=== PATIENT | female | born 1980 | race Caucasian/White ===

== ENCOUNTER 2019-03-02 10:14 | Outpatient (CLI) | payer BC, SELFPAY ==
[2019-03-02 12:15] LABS: Anion Gap 8.2 mmol/L (3-11); BUN 16 mg/dL (7-18); CO2 28.8 mmol/L (21.0-32.0); CREATININE 0.73 mg/dL (0.55-1.02); Calcium 9.3 mg/dL (8.5-10.1); Calculated LDL 127 mg/dL; Chloride 102 mmol/L (98-107); Cholesterol 215 mg/dL (50-200); Glucose 92 mg/dL (70-100); HDL Cholesterol 72 mg/dL (40-60); Potassium 4.4 mmol/L (3.5-5.1); Sodium 139 mmol/L (136-145); Triglyceride 81 mg/dL (30-150)
== END 2019-03-02 10:34 ==
DX: Z00.00 Encounter for general adult medical examination without abnormal findings (principal); Z13.228 Encounter for screening for other metabolic disorders; Z13.220 Encounter for screening for lipoid disorders
CPT/HCPCS: 36415; 80048; 80061

== ENCOUNTER 2019-06-14 00:50 | Outpatient (CLI) | payer BC, SELFPAY ==
--- NOTE | 2019-06-14 09:34 | DI.MAMMO_ITS ---
EXAM: MAMMO SCREENING CLINICAL HISTORY: screening, baseline TECHNIQUE: Mammograms were interpreted according to the usual protocol including computer analysis w [employer] CAD system, tomosynthesis and C-view imaging. FINDINGS: The breasts are of moderate density with fairly symmetrical distribution of fibroglandular tissue. N o dominant mass or clumped microcalcification is identified in either breast. Current examination is a baseline examination. IMPRESSION: No specific evidence of malignancy at this time. Routine screening examinations are suggested at year ly intervals in this age group according to the ACR guidelines. Category 1. Breast density, category B. BI-RADS Cat 1 - Negative. Breast Density - Category B - Scattered areas of fibroglandular density.
== END 2019-06-14 01:10 ==
PROVIDERS: Visit Provider Nurse Practitioner Women's Health
DX: Z12.31 Encounter for screening mammogram for malignant neoplasm of breast (principal)
CPT/HCPCS: 77063; 77067

== ENCOUNTER 2020-09-02 10:51 | Outpatient (REF) | payer BC, SELFPAY ==
--- NOTE | 2020-09-02 10:30 | PAPFT_PTH ---
PATIENT: Selma Osorio LOC: [facility] U#:[id number] AGE/SX: 40/F ROOM: RE09/02/[address]: Susan Lund NP : 1980 BED: DIS: 09/02/2020 SPEC #: [id number] RECD: 09/02/20 13:02 STATUS: ELIAN MANCUSO #: [id number] DEBBIE: 09/02/20 10:[address]: Susan Lund NP DEPT: [facility] Cytology RECD BY: Lynette Cartagena ENTERED: 09/02/20 13:02 SP TYPE: PAPFT OTHR DR: Donna Local Tissues: 1 - CX/ENDOCX FOR PAP SMEARS Procedures: PAP THIN PREP/[facility] Screening Comments: [id number] (CHLAMYDIA/GC)
[2020-09-04 15:09] LABS: Chlamydia Result Negative (Negative); GC Result Negative (Negative)
== END 2020-09-02 10:52 | disposition home or self-care (01) ==
LOC: LBN 10:51
PROVIDERS: Visit Provider Nurse Practitioner Women's Health
DX: Z12.4 Encounter for screening for malignant neoplasm of cervix (principal)
CPT/HCPCS: 87491; 87591; 88142

== ENCOUNTER 2020-09-11 02:17 | Outpatient (CLI) | payer BC, SELFPAY ==
--- NOTE | 2020-09-11 11:11 | DI.MAMMO_ITS ---
Exam(s) MAMMO SCREENING EXAM: MAMMO SCREENING CLINICAL HISTORY: screening TECHNIQUE: Mammograms were interpreted according to the usual protocol including computer analysis w [employer] CAD system, tomosynthesis and C-view imaging. COMPARISON: FINDINGS: The breasts of moderate density with fairly symmetrical distribution of fibroglandular tissue. No do minant mass clumped microcalcification is identified in either breast. The current examination is co mpared with previous examination of June 2019 and there is increased prominence of a focal area o f a symmetric density projected in the central superior portion of the left breast on MLO view only. Additional mammographic views of this area are requested to include an MLO spot compression view of the left breast. No other significant change seen. IMPRESSION: Additional mammographic views of the left breast requested as described above. Breast ultrasound may be indicated as well depending on the results of the additional mammographic views. BI-RADS Category 0 - Assessment Incomplete: Need additional imaging evaluation Breast Density - Category B - Scattered areas of fibroglandular density
== END 2020-09-11 02:37 ==
PROVIDERS: PCP Family Medicine; Visit Provider Nurse Practitioner Women's Health
DX: Z12.31 Encounter for screening mammogram for malignant neoplasm of breast (principal); R92.8 Other abnormal and inconclusive findings on diagnostic imaging of breast
CPT/HCPCS: 77063; 77067

== ENCOUNTER 2020-09-16 02:10 | Outpatient (CLI) | payer BC, SELFPAY ==
--- NOTE | 2020-09-16 | DI.MAMMO_ITS ---
Exam(s) MG MAMMO SCREEN CALL BACK UNI US BREAST LT LIMITED EXAM: MG MAMMO SCREEN CALL BACK UNI CLINICAL HISTORY: F/U MAMMO, INCREASED ASYMMETRIC DENSITY LT BREAST TECHNIQUE: Mammograms were interpreted according to the usual protocol including computer analysis w ith CAD system, tomosynthesis and C-view imaging. COMPARISON: FINDINGS: Additional mammographic views of the left breast and left breast ultrasound are interpreted in conjun ction. These examinations were obtained to evaluate questionable area of asymmetric density in the u pper outer quadrant of the left breast seen on MLO view of recent mammogram. Additional mammographic views fail to show a discrete mass. Breast ultrasound shows no evidence of a mass or cyst. IMPRESSION: No specific evidence of malignancy at this time. Follow-up unilateral left breast mammogram recommen ded in 6 months. BI-RADS Category 3 - 6 month - Probably Benign Finding: Recommend follow-up mammography in 6 months Breast Density - Category B - Scattered areas of fibroglandular density
== END 2020-09-16 02:30 ==
PROVIDERS: PCP Family Medicine; Visit Provider Nurse Practitioner Women's Health
DX: Z12.31 Encounter for screening mammogram for malignant neoplasm of breast (principal); R92.8 Other abnormal and inconclusive findings on diagnostic imaging of breast; N64.59 Other signs and symptoms in breast
CPT/HCPCS: 76642; 77063; 77067

== ENCOUNTER → 2021-11-02 02:22 | Outpatient (CLI) | payer BC, SELFPAY ==
--- NOTE | 2021-11-02 08:00 | DI.MAMMO_ITS ---
Exam(s) MAMMO SCREENING EXAM: MAMMO SCREENING CLINICAL HISTORY: screening,Z12.39. TECHNIQUE: Bilateral full field digital CC and MLO mammographic images were obtained with 3D tomosyn thesis and utilizing computer aided detection (CAD). COMPARISON: Prior mammograms were reviewed, the most recent being September 2020 breast ultrasound September was also reviewed. FINDINGS: There are no new significant radiograph findings in the right breast. In the left breast there have asymmetric density is again noted, slightly more prominent than previou s. No malignant-appearing microcalcification groups in this region or elsewhere in either breast There is no significant architectural distortion nor skin thickening-retraction. IMPRESSION: 1. No radiographic evidence of malignancy in the right breast. 2. Asymmetric density in left breast. Recommend spot compression view and complete left breast ultra sound.. BI-RADS Category 0 - Assessment Incomplete: Need additional imaging evaluation Breast Density - Category B - Scattered areas of fibroglandular density Breast density Category C or D implies that the patient has dense breast tissue. Dense breast tissue can make it harder to find cancer on a mammogram. Dense breast tissue is also associated with an incr eased risk of breast cancer. This information about the result of the mammogram report was provided to the patient to raise their awareness. Use this report when you speak with the patient about their risks for breast cancer, which includes their family history. At that time, you may recommend additional screening tests (Ultrasoun d or MRI) as these tests may add significant information. A negative radiographic report should not delay biopsy if a dominant or clinically suspicious mass is present. Up to ten percent of cancers are not identified on mammography. A negative report may reinforce clinical impression. Adenosis and dense breasts may obscure an underlying neoplasm. False positive reports average 6 to 10%. Patient will receive a letter notifying them of these results.
== END ==
PROVIDERS: PCP Family Medicine; Visit Provider Nurse Practitioner Women's Health
DX: Z12.31 Encounter for screening mammogram for malignant neoplasm of breast (principal); R92.8 Other abnormal and inconclusive findings on diagnostic imaging of breast
CPT/HCPCS: 77063; 77067

== ENCOUNTER → 2021-11-10 01:14 | Outpatient (CLI) | payer BC, SELFPAY ==
--- NOTE | 2021-11-10 | DI.US_ITS ---
Exam(s) MG MAMMO SCREEN CALL BACK UNI US BREAST LT COMPLETE EXAM: MG MAMMO SCREEN CALL BACK UNI -LEFT AND COMPLETE LEFT BREAST ULTRASOUND CLINICAL HISTORY: F/U MAMMO, ASYMMETRIC DENSITY LT BREAST. TECHNIQUE: Unilateral spot mammographic images obtained with 3D tomosynthesisand utilizing computer aided detection (CAD). . Complete LEFT breast Ultrasound was also performed, including all 4 quadrants, the retroareolar regio n, and the ipsilateral axilla. COMPARISON: Prior mammograms were reviewed. This additional imaging was performed due to findings described on the recent screening mammogram of 11/02/2021. FINDINGS: DIAGNOSTIC LEFT BREAST MAMMOGRAM: Additional CC AND MLO SPOT 3D VIEWS mammographic views performed todayrenders this area less concerni ng and similar appearance to prior mammograms. COMPLETE LEFT BREAST ULTRASOUND: Ultrasound performed today reveals no evidence of solid or significant cystic lesions in all 4 quadra nts. Retroareolar region also unremarkable. Scanning of the left axilla is negative for adenopathy. IMPRESSION: No radiographic evidence of malignancy. Also negative complete left breast ultrasound Appropriate follow-up is repeat left breast MAMMOGRAM in 6 months. The patient was informed of these findings and recommendations prior to leaving the department today. BI-RADS Category 3 - 6 month - Probably Benign Finding: Recommend follow-up mammography in 6 months Breast Density - Category B - Scattered areas of fibroglandular density Breast density Category C or D implies that the patient has dense breast tissue. Dense breast tissue can make it harder to find cancer on a mammogram. Dense breast tissue is also associated with an incr eased risk of breast cancer. This information about the result of the mammogram report was provided to the patient to raise their awareness. Use this report when you speak with the patient about their risks for breast cancer, which includes their family history. At that time, you may recommend additional screening tests (Ultrasoun d or MRI) as these tests may add significant information. A negative radiographic report should not delay biopsy if a dominant or clinically suspicious mass is present. Up to ten percent of cancers are not identified on mammography. A negative report may reinforce clinical impression. Adenosis and dense breasts may obscure an underlying neoplasm. False positive reports average 6 to 10%. Patient will receive a letter notifying them of these results.
== END ==
PROVIDERS: PCP Family Medicine; Visit Provider Nurse Practitioner Women's Health
DX: Z12.31 Encounter for screening mammogram for malignant neoplasm of breast (principal); R92.8 Other abnormal and inconclusive findings on diagnostic imaging of breast; N64.59 Other signs and symptoms in breast
CPT/HCPCS: 76642; 77063; 77067

== ENCOUNTER 2022-03-01 17:28 | Emergency (ER) | payer BC, SELFPAY ==
[2022-03-01 17:33] VITALS: BP 139/83; PULSE 68; RESP 18; TEMP 36.4; O2SAT 97
[2022-03-01 18:15] LABS: Bilirubin Negative (Negative); Blood Small (Negative); Clarity Clear (Clear); Glucose Negative (Negative); Ketones Negative (Negative); Leukocyte Esterase Trace (Negative); Nitrite Negative (Negative); Urobilinogen 0.2 EU/dL (Up TO 0.2)
--- NOTE | 2022-03-01 18:15 | DI.CT_ITS ---
Exam(s) CT RENAL COLIC WO EXAM: CT RENAL COLIC WO CLINICAL HISTORY: L flank pain. TECHNIQUE: Imaging Protocol: Axial computed tomography images with coronal and sagittal reformatted images were created and reviewed CONTRAST MATERIAL: Intravenous: none Oral: None COMPARISON: CT ABD PELVIS WITH CONTRAST from 09/19/2009 FINDINGS: VISUALIZED LUNG BASES: No nodules nor pleural effusions evident. ABDOMEN: There is no ascites. LIVER: There are no obvious focal hepatic lesions evident of this noninfused study. GALLBLADDER/BILIARY: Gallbladder is contracted and difficult to evaluate. No obvious gallbladder wal l edema nor pericholecystic fluid. CBD is not dilated. PANCREAS: No evidence of pancreatic mass nor dilatation of the pancreatic duct. SPLEEN: Spleen is not enlarged. No obvious intrasplenic lesions. ADRENALS: There are no significant adrenal masses. KIDNEYS:No cysts evident. No solid renal masses. No calculi nor hydronephrosis. . ABDOMINAL AORTA: Abdominal aorta is not enlarged. LYMPH NODES: There is no retroperitoneal nor paraaortic adenopathy. ABDOMINAL WALL: No evidence of significant anterior abdominal wall nor inguinal hernia. GI: There are few slightly prominent small bowel loops in the left side of the pelvis exhibiting diam eters of 3 cm. Small bowel loops distal to this appear collapsed. Part of the colon is collapsed. Ellen endix appears unremarkable. PELVIS: LYMPH NODES: There is no intrapelvic nor inguinal adenopathy. GI: No evidence of appendicitis.No evidence of sigmoid diverticulitis. URINARY BLADDER: No calculi nor obvious masses evident REPRODUCTIVE: IUD is in satisfactory position in the endometrial canal of the uterus. Uterus is antev erted. No abnormal adnexal masses. There is a cyst in the left ovary which measures 1.9x cyst in the left ovary is most probably follicular. 1.5 cm.. No right adnexal findings. No free fluid. OSSEOUS: No significant osseous lesions. Multilevel chronic disc space narrowing. No listhesis. IMPRESSION: 1. Main finding here is a few dilated small bowel loops in left side of the abdomen-pelvis, not appea ring significantly edematous at this time and not associated with ascites. However, may represent ear ly developing small-bowel obstruction, particularly since bowel loops distal to this appear collapsed . Close follow-up recommended. 2. IUD in satisfactory position in the endometrial canal. 1.5 x 1.9 cm left ovarian cyst, probably fo llicular. 3. No evidence of appendicitis. RADIATION DOSE DELIVERED: 954.98mGy.cm Total DLP DATA REPOSITORY: All CT scans at this facility are submitted to the National Radiology Data Registry (NRDR) Dose Index Registry (DIR) with the [employer] (ACR). RADIATION OPTIMIZATION: All CT scans at this facility use at least one of these dose optimization te chniques: automated exposure control; mA and/or kV adjustment per patient size (includes targeted exa ms where dose is matched to clinical indication); or iterative reconstruction.
--- NOTE | 2022-03-01 18:15 | ED.GENADUL_ITS ---
Discharge Plan Disposition Patient Disposition: HOME Condition: Improving Discharge Details Clinical Impression: Left flank pain Primary Care Provider: Malena Mahmood ED Provider: Riley Romo Home Meds and New Rx's Prescriptions: Continued albuterol sulfate [Proventil HFA] 90 mcg/actuation HFA aerosol inhaler 2 puff inhalation Q6H PRN (Reason: shortness of breath or wheezing) Qty: 8.5 0RF Mirena 20 mcg/24 hours (5 yrs) 52 mg intrauterine device 1 device IY ONCE ibuprofen 600 MG tablet 600 mg PO QID PRN (Reason: Pain) Qty: 15 0RF Discharge Instructions Instructions: Flank Pain (ED) Additional Instructions: Home to rest this evening. Tylenol and ibuprofen as needed for discomfort. You may use the provided oxycodone for severe or breakthrough pain. May use oxycodone tonight at bedtime. No alcohol or driving while taking oxycodone. Return to the ER if you develop a fever, increasing pain, bloating, or any other acute concerns Medical Decision Making This is a 41-year-old female who presents from home. She has had stuttering left flank pain for approximately 1 week's time, worsened last night. She did not have a fever. She has been nauseated but no vomiting. Vital signs are unremarkable. Differential diagnosis is broad including renal colic, UTI, bowel pathology or SI joint dysfunction. Patient IV access established, screening labs and urinalysis obtained. She is referred for laboratory testing and CT images. The patient's labs noted normal CBC, chemistries with slight hyponatremia of 133 but otherwise unremarkable. Urinalysis with small blood and trace leuk esterase, micro urinalysis with mixed cells and culture pending. CT shows mildly dilated left lower quadrant small bowel loops. Small left ovarian cyst. No evidence of obstructive uropathy. Following fluids and medications, the patient is improving. Discussed that there is no clear etiology for her pain. Offered small number analgesics for home. She will return if she also fever, increasing pain, or any other acute concerns. HPI General Mode of arrival: ambulatory . Date/Time Provider Initiated Documentation: 03/01/22 17:38 . Limitations to Documentation: no limitations . Information obtained by: patient . History of Present Illness 41 year old F presents to the emergency department with the chief complaint of Left flank pain for 1 week, described as moderate, Quality is described as dull, and is localized to the back and left. Patient abdomen. Patient started experiencing this day(s) and it has been intermittent. No relieving factors improve symptom(s), No exacerbating factors reported . Patient notes denies fever/chills. Patient did receive the following treatments prior to arrival, none Related Data Home Medications Medication Instructions Recorded Confirmed ibuprofen 600 mg tablet 600 mg PO QID PRN Pain #15 tabs 11/10/16 03/01/22 levonorgestrel 20 mcg/24 hours (7 1 device intrauterine ONCE 05/14/19 03/01/22 yrs) 52 mg intrauterine device (Mirena) albuterol sulfate 90 mcg/actuation 2 puff inhalation Q6H PRN 12/18/21 03/01/22 aerosol inhaler (Proventil HFA) shortness of breath or wheezing #8.5 grams Previous Rx's Medication Instructions Recorded ibuprofen 600 mg tablet 600 mg PO QID PRN Pain #15 tabs 11/10/16 albuterol sulfate 90 mcg/actuation 2 puff inhalation Q6H PRN 12/18/21 aerosol inhaler (Proventil HFA) shortness of breath or wheezing #8.5 grams Allergies Allergy/AdvReac Type Severity Reaction Status Date / Time No Known Allergies Allergy Verified 03/01/22 17:35 General Stated Complaint: FlankPain SALVADOR: 3 Review of Systems Narrative: Pain comes in waves, radiates to her abdomen. No fever or vomiting. Endorses nausea. No recent menstrual periods. 8 systems were reviewed and otherwise negative. PFSH All Active Problems (Updated 03/01/22 @ 20:35 by Riley Romo MD) Left flank pain (Acute) IUD surveillance (Acute) GERD (gastroesophageal reflux disease) (Chronic) Chronic low back pain (Chronic) Surgical History hip surgery right Family History Mother Personal history of malignant neoplasm skin Father Hyperlipidemia Brother Hyperlipidemia Grandfather Personal history of malignant neoplasm Liver Grandfather Heart disease Grandmother Personal history of malignant neoplasm Lung Grandmother Diabetes Stroke Social History Smoking/Tobacco Use Status: Current every day Tobacco Type: cigarettes Smoking risk assessment performed?: Yes Alcohol Intake: current Alcohol Intake frequency: holidays/special occasions only Drug use: Never Substance use type: does not use Do you feel safe at home: Yes Do you feel safe in your relationship?: Yes Female Reproductive History Menstrual control method: progestin IUCD History History 2 Para 2 Hx # Term Pregnancies Multiple births Hx # Pregnancies Ectopic pregnancies AB induced Hx Number of Living Children AB spontaneous Exam Narrative Exam Narrative: GEN: awake, alert, oriented 3. Pleasant, well groomed, interactive. HEAD: Normocephalic, atraumatic ENT: Mucous membranes moist, oropharynx unremarkable, External ear exam unremarkable EYES: PERRL, EOMI NECK: Full ROM, no KARINA, no menigismus CHEST/RESP: Nontender, clear to auscultation bilateral, no wheeze/rhonchi/rales CARDIOVASCULAR: RRR, no murmur, rub leeroy. 2+ Rad pulse bilateral ABDOMEN: Soft, nontender, no mass. +Bowel sounds. The left flank is tender to percussion. No midline tenderness, step-off or deformity of the spine. EXT: Full ROM, no edema, no rash Neuro: Grossly normal neurologic exam, conversant, interactive. Psych: Speech fluent, thoughts congruent, affect normal Course Vital Signs Vital signs: Vital Signs Temperature 36.4 C L 03/01/22 17:33 Pulse 68 03/01/22 17:33 Respiratory Rate 18 03/01/22 17:33 Blood Pressure 139/83 03/01/22 17:33 Pulse Oximetry 97 03/01/22 17:33 Temperature 36.4 C L 03/01/22 17:33 Temperature Source Tympanic 03/01/22 17:33 Pulse 68 03/01/22 17:33 Respiratory Rate 18 03/01/22 17:33 Respiratory Effort Non-Labored 03/01/22 17:37 Blood Pressure 139/83 03/01/22 17:33 Blood Pressure Position Sitting 03/01/22 17:33 Pulse Oximetry 97 03/01/22 17:33 Oxygen Delivery Method Room Air 03/01/22 17:33 Oxygen Flow Rate 0 03/01/22 17:33 Pain Level 8 03/01/22 17:37
[2022-03-01 18:29] LABS: Bacteria Few HPF (Negative); C & S Indicated? Yes; Casts Negative LPF (Negative); Crystals Negative HPF (Negative); Epithelial Cells Rare HPF (Negative); Mucus Negative (Negative)
[2022-03-01 18:40] LABS: Abs Immature Grans 0.02 10^3/uL (0.0-0.06); Absolute Basophil Count 0.06 10^3/uL (0.0-0.2); Absolute Eosinophil Count 0.29 10^3/uL (0.0-0.7); Absolute Lymphocyte Count 3.12 10^3/uL (1.2-3.4); Absolute Monocyte Count 0.91 10^3/uL (0.1-0.8); Absolute Neutrophil Count 4.62 10^3/uL (1.2-6.7); Basophils % 0.7; Eosinophils % 3.2; HCT 38.7 % (36.0-46.0); Immature Grans % 0.2; Lymphocytes % 34.6; MCHC 33.6 % (32.0-36.0); MCV 89 fL (80-95); MPV 8.2 fL (8.0-11.0); Monocytes % 10.1; Neutrophils % 51.2; Platelet Count 323 10^3/uL (130-400); RBC 4.34 10^6/uL (3.93-5.22); RDW 11.9 % (11.7-14.6); RDW-SD 38.6 fL; WBC 9.02 10^3/uL (4.4-10.8)
[2022-03-01] MEDS: Ketorolac 30 MG/ML VIAL IVP (18:40)
[2022-03-01] MEDS: Normal Saline 1,000 ML 1000 ML IV (18:40)
[2022-03-01 18:51] LABS: ALT 25 U/L (14-59); AST 14 U/L (15-37); Alkaline Phosphatase 75 U/L (46-116); BUN 16 mg/dL (7-18); Bilirubin, Total 0.4 mg/dL (0.2-1.0); CREATININE 0.8 mg/dL (0.55-1.02); Calcium 9.1 mg/dL (8.5-10.1); Chloride 102 mmol/L (98-107); Glucose 96 mg/dL (74-106); Potassium 3.7 mmol/L (3.5-5.1); Sodium 133 mmol/L (136-145); Total Protein 7.8 g/dL (6.4-8.2)
--- NOTE | 2022-03-01 19:15 | DI.VRAD_ITS ---
PROCEDURE INFORMATION: Exam: CT Abdomen And Pelvis Without Contrast Exam date and time: 03/01/2022 6:51 PM Age: 41 years old Clinical indication: Abdominal pain; Flank; Left; Additional info: Left flank pain TECHNIQUE: Imaging protocol: Computed tomography of the abdomen and pelvis without contrast. Radiation optimization: All CT scans at this facility use at least one of these dose optimization techniques: automated exposure control; mA and/or kV adjustment per patient size (includes targeted exams where dose is matched to clinical indication); or iterative reconstruction. COMPARISON: OB US 2-3 TRIMESTER TRANSABD*P 12/01/2015 4:19 PM FINDINGS: Liver: Normal. No mass. Gallbladder and bile ducts: No calcified stones. No ductal dilation. Pancreas: Normal. No ductal dilation. Spleen: Normal. No splenomegaly. Adrenal glands: Normal. No mass. Kidneys and ureters: Normal. No hydronephrosis. Stomach and bowel: Mild small bowel thickening and mild bowel dilatation in the left lower quadrant Appendix: No evidence of appendicitis. Intraperitoneal space: Unremarkable. No free air. No significant fluid collection. Vasculature: Unremarkable. No abdominal aortic aneurysm. Lymph nodes: Unremarkable. No enlarged lymph nodes. Urinary bladder: Unremarkable as visualized. Reproductive: 15 mm left ovarian cyst. Intrauterine device in the uterus Bones/joints: No acute fracture. Degenerative changes in the spine Soft tissues: Small fat containing periumbilical hernia IMPRESSION: Mildly dilated left-sided lower quadrant small bowel loops in the left lower quadrant. Findings may represent mild ileus versus developing partial small bowel obstruction Small left ovarian cyst No CT evidence for obstructive uropathy Dictated and Authenticated by: Owen Dai MD. Ordering:JUWAN Lin MD
[2022-03-01 20:44] VITALS: BP 128/81; PULSE 52; RESP 18; TEMP 36.6; O2SAT 99
== END 2022-03-01 20:45 | disposition home or self-care (01) ==
PROVIDERS: Emergency Provider Emergency Medicine; PCP Family Medicine
DX: R10.9 Unspecified abdominal pain (principal)
CPT/HCPCS: 80053; 81025; 96361; 96374; 99284; 74176; 81003; 81015; 85025; 87086; 99283; J1885

== ENCOUNTER 2022-03-02 03:58 | Emergency (ER) | payer BC, SELFPAY ==
[2022-03-02 04:02] VITALS: BP 134/85; PULSE 69; RESP 16; TEMP 35.4; O2SAT 100
[2022-03-02 04:14] LABS: Bilirubin Negative (Negative); Blood Small (Negative); Clarity Clear (Clear); Glucose Negative (Negative); Ketones Negative (Negative); Leukocyte Esterase Negative (Negative); Nitrite Negative (Negative); Specific Gravity >= 1.030 (1.005-1.025); Urobilinogen 0.2 EU/dL (Up TO 0.2)
--- NOTE | 2022-03-02 04:20 | ED.GENADUL_ITS ---
Discharge Plan Disposition Patient Disposition: HOME Condition: Stable Discharge Details Clinical Impression: Back pain Primary Care Provider: Malena Mahmood ED Provider: Gregory Lund Home Meds and New Rx's Prescriptions: Continued albuterol sulfate [Proventil HFA] 90 mcg/actuation HFA aerosol inhaler 2 puff inhalation Q6H PRN (Reason: shortness of breath or wheezing) Qty: 8.5 0RF Mirena 20 mcg/24 hours (5 yrs) 52 mg intrauterine device 1 device IY ONCE ibuprofen 600 MG tablet 600 mg PO QID PRN (Reason: Pain) Qty: 15 0RF Discharge Instructions Instructions: Back Pain (ED) Medical Decision Making 41 yo female comes in with several days of intermittent left lower back pain. She states it started without falls or trauma, can't think of anything that made it start. She was seen in the ED last night for the pain and had labs which showed no significant findings and a ct which showed no kidney stone, nonspecific fluid filled bowel loops and small ovarian cyst. She was discharged and woke up with the same pain so came back for reevaluation. She denies fevers, chills, ivdu, abdominal pain, n/v. She localizes the pain to the left lower lateral lumbar back. No midline pain, no saddle anesthesia, normal distal sensation and pulses, no erythema or warmth. She has no abdominal tenderness at all so doubt evolving sbo. She has no findings on history or exam to suggest spinal epidural abscess or cauda equina. Suspect musculoskeletal back pain, will treat with toradol and valium and reassess. pt with no significant relief of pain with toradol and valium. No changes in exam, still no saddle anesthia or abdominal pain,ambulating without difficulty and pacing around room. Offered to give IM morphine for pain relief, discussed potential causes for her pain such as worsening of what she states chronic daily back pain vs disc herniation, patient then started to get agitated and yelled at me about how she's been in the and hurt her back before and has had kids and that she has a high pain tolerance. I tried to discuss with her that disc herniations or lumbar strains and other various non life threatening causes of back pain can be painful, but she would continually start yelling over what I was saying about how I wasn't treating her pain. Again tried to offer her IM morphine and again said I wasn't doing anything for her pain despite offering to order her this. I did offer to her multiple times im pain meds and though unlikely to find anything emergent keep her here for further studies such as mri but then she started to yell just sign me out I want to go home if you are not going to do anything for me. I tried multiple times to discuss with the patient potential causes of her pain and she would talk over me or yell. I then again offered for the last time to give her im morphine while she was yelling at me that I wasn't helping her and she requested d/c. Given her exam and history do not feel she is likely to have emergent pathology on an mri such as cauda equina so do not feel she needs to sign out ama. I recommended she follow up with her primary care gildardo and return precautions given Differential Diagnosis Differential Diagnosis: musculoskeletal back pain, muscle spasm Medical Records Medical records reviewed: Yes I reviewed the patient's medical records. HPI General Mode of arrival: ambulatory . Date/Time Provider Initiated Documentation: 03/02/22 04:00 . Limitations to Documentation: no limitations . Information obtained by: patient . History of Present Illness 41 year old F presents to the emergency department with the chief complaint of lower back pain, described as severe, Quality is described as sharp, and is localized to the back. Patient reports no radiation. Patient started experiencing this day(s) (4) and it has been intermittent. No relieving factors improve symptom(s), No exacerbating factors reported . Patient notes denies fever/chills and nausea/vomiting. Patient did receive the following treatments prior to arrival, none Related Data Home Medications Medication Instructions Recorded Confirmed ibuprofen 600 mg tablet 600 mg PO QID PRN Pain #15 tabs 11/10/16 03/02/22 levonorgestrel 20 mcg/24 hours (7 1 device intrauterine ONCE 05/14/19 03/02/22 yrs) 52 mg intrauterine device (Mirena) albuterol sulfate 90 mcg/actuation 2 puff inhalation Q6H PRN 12/18/21 03/02/22 aerosol inhaler (Proventil HFA) shortness of breath or wheezing #8.5 grams Previous Rx's Medication Instructions Recorded ibuprofen 600 mg tablet 600 mg PO QID PRN Pain #15 tabs 11/10/16 albuterol sulfate 90 mcg/actuation 2 puff inhalation Q6H PRN 12/18/21 aerosol inhaler (Proventil HFA) shortness of breath or wheezing #8.5 grams Allergies Allergy/AdvReac Type Severity Reaction Status Date / Time No Known Allergies Allergy Verified 03/02/22 04:09 General Stated Complaint: FlankPain SALVADOR: 3 Review of Systems All systems reviewed & are unremarkable except as noted in HPI and below Constitutional Constitutional: Denies chills, Denies fever(s) and Denies weakness Cardiovascular Cardiovascular: Denies chest pain and Denies dyspnea Respiratory Respiratory: Denies cough and Denies dyspnea Gastrointestinal Gastrointestinal: Denies abdominal pain, Denies nausea and Denies vomiting Genitourinary Genitourinary: Denies dysuria Integumentary/Breasts Skin/Breast: Denies rash Neurologic Neurologic: Denies weakness PFSH All Active Problems (Updated 03/02/22 @ 05:30 by Gregory Lund MD) Left flank pain (Acute) Back pain (Acute) IUD surveillance (Acute) GERD (gastroesophageal reflux disease) (Chronic) Chronic low back pain (Chronic) Surgical History hip surgery right Family History Mother Personal history of malignant neoplasm skin Father Hyperlipidemia Brother Hyperlipidemia Grandfather Personal history of malignant neoplasm Liver Grandfather Heart disease Grandmother Personal history of malignant neoplasm Lung Grandmother Diabetes Stroke Social History Smoking/Tobacco Use Status: Current every day Tobacco Type: cigarettes Smoking risk assessment performed?: Yes Alcohol Intake: current Alcohol Intake frequency: holidays/special occasions only Drug use: Never Substance use type: does not use Do you feel safe at home: Yes Do you feel safe in your relationship?: Yes Female Reproductive History Menstrual control method: progestin IUCD History History 2 Para 2 Hx # Term Pregnancies Multiple births Hx # Pregnancies Ectopic pregnancies AB induced Hx Number of Living Children AB spontaneous Exam Const Orientation: alert HENMT Head: normal to inspection Ears: external ears normal General nose exam: external nose normal Mouth: moist mucous membranes Eyes General: appearance normal, both eyes and all related structures Neck Neck: normal visual inspection Resp Effort & Inspection: normal respiratory effort and able to speak in complete sentences Cardio Rate: regular rate GI Palpation: soft and nontender Back/Spine/Pelvis Back: no CVA tenderness Skin General skin exam: no rashes or lesions noted Neuro General: patient alert and patient oriented x3 Extrem General: normal to inspection Psych Mental Status: mental status grossly normal Course Vital Signs Vital signs: Vital Signs Temperature 35.4 C L 03/02/22 04:02 Pulse 69 03/02/22 04:02 Respiratory Rate 16 03/02/22 04:02 Blood Pressure 134/85 03/02/22 04:02 Pulse Oximetry 100 03/02/22 04:02 Temperature 35.4 C L 03/02/22 04:02 Temperature Source Tympanic 03/02/22 04:02 Pulse 69 03/02/22 04:02 Respiratory Rate 16 03/02/22 04:02 Respiratory Effort 03/02/22 04:02 Blood Pressure 134/85 03/02/22 04:02 Blood Pressure Position Standing 03/02/22 04:02 Pulse Oximetry 100 03/02/22 04:02 Oxygen Delivery Method Room Air 03/02/22 04:02 Oxygen Flow Rate 0 03/02/22 04:02 Pain Level 10 03/02/22 04:09 Lab/Test Results Lab/Test Results: POC- Test(urine) Negative
[2022-03-02] MEDS: Ketorolac 30 MG/ML VIAL IM (04:29)
[2022-03-02] MEDS: diazePAM 10 MG/2 ML SYR IM (04:30)
[2022-03-02 04:36] LABS: Bacteria Rare HPF (Negative); C & S Indicated? No; Crystals Negative HPF (Negative); Epithelial Cells Moderate HPF (Negative); Mucus Negative (Negative); WBC 0-2 HPF (0-5)
== END 2022-03-02 05:39 | disposition home or self-care (01) ==
PROVIDERS: Emergency Provider Emergency Medicine; PCP Family Medicine
DX: M54.50 Low back pain, unspecified (principal)
CPT/HCPCS: 81025; 96372; 99284; 81003; 81015; J1885; J3360

== ENCOUNTER 2022-09-30 09:28 | Emergency (ER) | payer BC, SELFPAY ==
[2022-09-30 09:25] VITALS: BP 129/59; PULSE 58; RESP 18; TEMP 36.6; O2SAT 99
--- NOTE | 2022-09-30 10:10 | W.ED.GENAD ---
Discharge Plan Discharge Details Chief Complaint: Fall/Non TraumaCriteria Primary Care Provider: Malena Mahmood ED Provider: Perry Pinto Home Meds and New Rx's Prescriptions: No Action albuterol sulfate [Proventil HFA] 90 mcg/actuation HFA aerosol inhaler 2 puff inhalation Q6H PRN (Reason: shortness of breath or wheezing) Qty: 8.5 0RF Mirena 20 mcg/24 hours (5 yrs) 52 mg intrauterine device 1 device IY ONCE ibuprofen 600 MG tablet 600 mg PO QID PRN (Reason: Pain) Qty: 15 0RF escitalopram oxalate 10 mg tablet 10 mg PO DAILY Patient Comments: TAKE 1/2 TABLET BY MOUTH EVERY MORNING Medical Decision Making 1015 -- 42-year-old female presents with severe right posterior upper lower extremity pain after fall with hyperflexion at the hip and extension at the knee. Tender over her hamstring. Suspect acute hamstring tear. Consider fracture will obtain x-ray of the femur. I have requested orthopedic consultation. Toradol 30 mg IV to be administered for pain. -- X-ray of the femur interpreted by radiology as negative. -- Patient seen by orthopedics who recommends MRI. Unfortunately MRI not available today. Patient was given Dilaudid 1 mg IV for pain. She was reassessed and unfortunately was unable to ambulate secondary to pain. I spoke again with Dr. Cedeño who suggested potentially obtaining CT image. This was discussed with Dr. Haque radiology who feels CT imaging would not be helpful and recommends waiting for MRI tomorrow. Patient unable to ambulate secondary to pain. No inpatient beds available at [facility] for observation. Considered transfer and supervisor wire [employer] called multiple regional facilities and all at capacity unable accept the patient in transfer. Plan to board here in the emergency department until MRI and able to ambulate. MRI will not be available tonight. HPI General Mode of arrival: EMS. Date/Time Provider Initiated Documentation: 09/30/22 09:38. Limitations to Documentation: no limitations. Information obtained by: patient. HPI Narrative: 42-year-old female presents with chief complaint of severe right posterior upper leg pain. Patient slipped in chicken coop and hyperflexed her right leg at hip and extended knee and felt a popping sensation in her hamstring. She has had pain since the fall. Pain is severe. She is not able to ambulate. Patient received fentanyl by EMS and notes pain slightly improved being held in hip flexed position. Patient denies associated numbness or tingling. No other injury was sustained during fall. Related Data Home Medications Medication Instructions Recorded Confirmed ibuprofen 600 mg tablet 600 mg PO QID PRN Pain #15 tabs 11/10/16 09/30/22 levonorgestrel 21 mcg/24 hours (8 1 device intrauterine ONCE 05/14/19 09/30/22 yrs) 52 mg intrauterine device (Mirena) albuterol sulfate 90 mcg/actuation 2 puff inhalation Q6H PRN 12/18/21 09/30/22 aerosol inhaler (Proventil HFA) shortness of breath or wheezing #8.5 grams escitalopram oxalate 10 mg tablet 10 mg PO DAILY 09/30/22 09/30/22 Previous Rx's Medication Instructions Recorded ibuprofen 600 mg tablet 600 mg PO QID PRN Pain #15 tabs 11/10/16 albuterol sulfate 90 mcg/actuation 2 puff inhalation Q6H PRN 12/18/21 aerosol inhaler (Proventil HFA) shortness of breath or wheezing #8.5 grams Allergies Allergy/AdvReac Type Severity Reaction Status Date / Time No Known Allergies Allergy Verified 09/30/22 09:35 General Stated Complaint: Fall/Non TraumaCriteria SALVADOR: 3 PFSH All Active Problems (Updated 09/30/22 @ 15:27 by NIMA [place]) Right hamstring injury (Acute) IUD surveillance (Acute) GERD (gastroesophageal reflux disease) (Chronic) Chronic low back pain (Chronic) Surgical History hip surgery right Family History Mother Personal history of malignant neoplasm skin Father Hyperlipidemia Brother Hyperlipidemia Grandfather Personal history of malignant neoplasm Liver Grandfather Heart disease Grandmother Personal history of malignant neoplasm Lung Grandmother Diabetes Stroke Social History Smoking/Tobacco Use Status: Former Tobacco Use Quit Date: 09/27/22 Smoking risk assessment performed?: Yes Alcohol Intake: current Alcohol Intake frequency: holidays/special occasions only Drug use: Never Substance use type: does not use Do you feel safe at home: Yes Do you feel safe in your relationship?: Yes Female Reproductive History Menstrual control method: progestin IUCD History History 2 Para 2 Hx # Term Pregnancies Multiple births Hx # Pregnancies Ectopic pregnancies AB induced Hx Number of Living Children AB spontaneous Exam Const General: cooperative HENMT Head: normocephalic and atraumatic Eyes Conjunctivae: normal conjunctivae Sclera: normal sclerae EOM: EOM intact bilaterally Neck Neck: full ROM and nontender Resp Auscultation: clear to auscultation bilaterally, no rales, no rhonchi and no wheezes Cardio Rate: regular rate and not tachycardic Rhythm: regular rhythm GI Palpation: soft, not firm, no guarding, no masses, not rigid and nontender Skin General skin exam: no rashes or lesions noted Neuro General: patient alert, patient awake and tone normal Extrem Right lower extremity: hip/thigh Details: tenderness (rt posterior thigh exquisitely tender) and abnormal ROM Details: held in an abnormal fashion Details: in flexion and pain with active ROM during Details: with extension, knee Details: normal to inspection and lower leg Details: normal to inspection Other: Distal motor and sensation intact 2+ posterior tibial pulse Psych Appearance: grossly normal Mental Status: mental status grossly normal Course Vital Signs Vital signs: Vital Signs Temperature 36.6 C 09/30/22 09:25 Pulse 58 L 09/30/22 09:25 Respiratory Rate 18 09/30/22 09:25 Blood Pressure 129/59 L 09/30/22 09:25 Pulse Oximetry 99 09/30/22 09:25 Temperature 36.6 C 09/30/22 09:25 Pulse 58 L 09/30/22 09:25 Respiratory Rate 18 09/30/22 09:25 Respiratory Effort Normal 09/30/22 09:34 Blood Pressure 129/59 L 09/30/22 09:25 Blood Pressure Position Supine 09/30/22 09:25 Pulse Oximetry 99 09/30/22 09:25 Oxygen Delivery Method Room Air 09/30/22 09:25 Oxygen Flow Rate 0 09/30/22 09:25 Pain Level 2 09/30/22 09:25
[2022-09-30] MEDS: Ketorolac 30 MG/ML VIAL IVP (10:11)
--- NOTE | 2022-09-30 10:41 | W.ORTHOCONSU ---
Date of service: 09/30/22 Time of Service: 10:42 History of Present Illness Narrative: 42 year old female seen in the ED with severe right posterior thigh tenderness. Patient reports that she slipped and did a partial split this morning around 6:30 where she hyperflexed her right hip and hyperextended her right knee. She reports feeling a popping sensation in the back of the knee/distal thigh. She has not been able to bear weight since. She reports pain at the distal medial posterior thigh at rest and pain in the mid medial posterior thigh with attempt at movement. She reports that she is most comfortable with the hip and knee both partially flexed. Denies any discomfort in the groin, lateral hip, or anterior knee. Denies any numbness or tingling. History of right [place] lab[place] [facility] [place] Assessment and Plan Assessment and plan (1) Right hamstring injury: Status: Acute Assessment and plan: 42-year-old female with probable right distal hamstring injury based on mechanism and limited exam. Rest, ice, compression, and elevation. Knee immobilizer for support. Crutches for protected weightbearing. Multimodal pain control. Attempt to gently increase motion about the knee if possible to prevent stiffness. Majority of hamstring injuries are treated successfully without surgery. MRI would be able to grade injury. Recommend right thigh MRI and orthopedic follow-up within 1 week. Patient requests [facility] All Active Problems (Updated 09/30/22 @ 15:27 by NIMA [place]) Right hamstring injury (Acute) IUD surveillance (Acute) GERD (gastroesophageal reflux disease) (Chronic) Chronic low back pain (Chronic) Surgical History hip surgery right Family History Mother Personal history of malignant neoplasm skin Father Hyperlipidemia Brother Hyperlipidemia Grandfather Personal history of malignant neoplasm Liver Grandfather Heart disease Grandmother Personal history of malignant neoplasm Lung Grandmother Diabetes Stroke Social History Smoking/Tobacco Use Status: Former Tobacco Use Quit Date: 09/27/22 Smoking risk assessment performed?: Yes Alcohol Intake: current Alcohol Intake frequency: holidays/special occasions only Drug use: Never Substance use type: does not use Do you feel safe at home: Yes Do you feel safe in your relationship?: Yes Female Reproductive History Menstrual control method: progestin IUCD History History 2 Para 2 Hx # Term Pregnancies Multiple births Hx # Pregnancies Ectopic pregnancies AB induced Hx Number of Living Children AB spontaneous Exam Narrative Exam Narrative: Patient resting on stretcher with bilateral hips and knees flexed. Right lower extremity without any ecchymosis, deformity, or skin lesions. Demonstrates active hip and knee flexion. Severe discomfort with attempted hip and knee extension. Severe discomfort with palpation along the medial hamstring. No discomfort with palpation of the lateral hamstring insertion. Knee exam limited by patient discomfort, unable to tolerate positioning. No joint line tenderness. Stable anterior and posterior drawer. Sensation intact to light touch. Results Last Vital Signs Temp 97.9 F 09/30/22 09:25 Pulse 58 L 09/30/22 09:25 Resp 18 09/30/22 09:25 BP 129/59 L 09/30/22 09:25 Pulse Ox 99 09/30/22 09:25
--- NOTE | 2022-09-30 11:20 | DI.RAD_ITS ---
Exam(s) XR FEMUR RT EXAM: XR FEMUR RT CLINICAL HISTORY: pain, fall, suspect hamstring tear. TECHNIQUE: 2D digital imaging was performed of the right femur. Five images were obtained. AP and l ateral views were obtained. COMPARISON: No exams were available for comparison FINDINGS: BONES: No acute fracture is present. No bony destructive lesion is seen. Visualized portion of knee a nd hip joints are unremarkable. SOFT TISSUE: Normal. IMPRESSION: Unremarkable radiographs of the right femur. DATA REPOSITORY: RADIATION DOSE DELIVERED:
[2022-09-30] MEDS: HYDROmorphone 2 MG/ML SYR 1 MG IVP (12:42)
[2022-09-30] MEDS: oxyCODONE 5 MG TAB PO (16:33)
--- NOTE | 2022-09-30 18:55 | DI.MRI_ITS ---
Exam(s) MR LOWER EXTREMITY RT WO EXAM: MR LOWER EXTREMITY RT WO CLINICAL HISTORY: pain, neg xray TECHNIQUE: Multiplanar multisequence MRI was performed. COMPARISON: No exams were available for comparison FINDINGS: MARROW:There is no evidence of fracture, bone contusion, nor avascular necrosis. There are no signif icant osseous lesions. MUSCLES: There is no evidence of abnormal signal nor mass in the visualized muscles. EXTRAMUSCULAR SOFT TISSUES: No abnormal signal, mass, or fluid collection. OTHER: None. IMPRESSION: 1. 2. 3. DATA REPOSITORY:
[2022-09-30 19:04] VITALS: BP 101/60; PULSE 53; RESP 12; O2SAT 98
[2022-09-30] MEDS: ACETAMINOPHEN 1,000 MG/100 ML BTL 400 MG IVPB (19:33)
[2022-09-30] MEDS: Ibuprofen 800 MG TAB PO (19:34)
--- NOTE | 2022-09-30 19:51 | DI.VRAD_ITS ---
PROCEDURE INFORMATION: Exam: MR Right Lower Extremity Without Contrast, Femur Exam date and time: 09/30/2022 5:09 PM Age: 42 years old Clinical indication: Injury or trauma; Fall; Sprain or strain; Thigh or upper leg; Injury date: 09/30/22; Injury details: Patient fell this morning, extended right leg when she fell on slippery serface. TECHNIQUE: Imaging protocol: Magnetic resonance imaging of the right femur without contrast. COMPARISON: CR XR FEMUR RT 09/30/2022 11:13 AM FINDINGS: Bones/joints: Osseous alignment is normal. No acute fracture. Mild focal edema noted in the femoral head deep to the foveal enteritis. This may be related to osteoarthritis or mild bone contusion. Tendons: There is severe tearing with complete to near-complete avulsion of the proximal hamstring tendon. There is slight tendon retraction. Distal tendons appear intact. Soft tissues: Significant edema noted throughout the muscle belly of the biceps femoris. Large amount of mixed density fluid compatible with edema and hemorrhage is seen along the fascial plane between the biceps femoris in the semitendinosis/semimembranosus. Extension of edema into the gluteal region and adductor musculature also noted. IMPRESSION: 1. Significant findings of proximal hamstring tendon avulsion injury 2. Significant edema noted in the biceps femoris muscle belly. While this is favored to be secondary to adjacent edema and hemorrhage in the fascial plane extending into the muscle belly, partial tearing of the biceps femoris can not be excluded. 3. Small focus of marrow edema in the femoral head favored to be due to early arthritic changes, although small bone contusion not excluded Dictated and Authenticated by: Angel Coleman MD. Ordering:NUBIA Najera MD
--- NOTE | 2022-09-30 20:39 | W.ED.GENAD ---
Discharge Plan Disposition Patient Disposition: Home Condition: Stable Discharge Details Clinical Impression: Right hamstring injury Primary Care Provider: Malena Mahmood ED Provider: Dania Christensen Home Meds and New Rx's Prescriptions: New acetaminophen 325 mg capsule 650 mg PO Q4H PRN (Reason: pain) Qty: 60 0RF Continued Mirena 20 mcg/24 hours (5 yrs) 52 mg intrauterine device 1 device IY ONCE escitalopram oxalate 10 mg tablet 10 mg PO HS Patient Comments: TAKE 1/2 TABLET BY MOUTH EVERY MORNING No Action naproxen 250 mg tablet 250 - 500 mg PO BID PRNQty: 40 0RF Rx Instructions: take with a meal oxycodone-acetaminophen [Percocet] 5-325 mg tablet 1 - 2 tab PO Q4H MDD 30 mg PRN (Reason: Moderate to severe pain) Qty: 18 0RF Discharge Instructions Instructions: Hamstring Injury (ED) Additional Instructions: rest and ice to affected area as much as possible. ibuprofen 600 mg 4 times daily if needed for pain. acetaminophen 650 mg every 4 hours if needed for breakthrough pain oxycodone 5 mg tab every 6 hours for severe pain not relieved by above. crutches for protected weight bearing. Referrals: Dax Cedeño MD [ [facility] STAFF PHYSICIAN] - (in one week to discuss possible surgical repair) Malena Mahmood [Primary Care Provider] - Discharge Data Discharge Date/Time-TO BE ENTERED AT DEPARTURE: 09/30/22 21:07 Medical Decision Making <Dania Christensen NP - Last Filed: 10/02/22 15:28> Patient signed out to me by Dr. Pinto for final diagnosis and disposition. MRI is reviewed with Dr. Cedeño. Discharge instructions recommended if patient is able to safely be ambulated. She was given IV acetaminophen and oral ibuprofen 800 mg. She was able to be read ambulated with walker and then crutches. She felt safe for discharge to home. She will be discharged home with oxycodone 5 mg 4 tabs to be dispensed for home use for severe pain. She will follow-up with orthopedics outpatient Medical Records Medical records reviewed: Yes I reviewed the patient's medical records. <Perry Pinto MD - Last Filed: 10/13/22 17:24> Note: I did not evaluate this patient. The patient was seen, evaluated, treated and dispositioned independently by MYNOR Christensen. HPI <Dania Christensen NP - Last Filed: 10/02/22 15:28> General Mode of arrival: EMS. Date/Time Provider Initiated Documentation: 09/30/22 09:38. Limitations to Documentation: no limitations. Information obtained by: patient. Related Data Home Medications Medication Instructions Recorded Confirmed levonorgestrel 21 mcg/24 hours (8 1 device intrauterine ONCE 05/14/19 10/07/22 yrs) 52 mg intrauterine device (Mirena) acetaminophen 325 mg capsule 650 mg PO Q4H PRN pain #60 caps 09/30/22 10/07/22 escitalopram oxalate 10 mg tablet 10 mg PO HS 09/30/22 10/07/22 naproxen 250 mg tablet 250 - 500 mg PO BID PRN #40 tabs 10/07/22 oxycodone-acetaminophen 5 mg-325 1 - 2 tab PO Q4H PRN Moderate to 10/07/22 mg tablet (Percocet) severe pain #18 tabs Previous Rx's Medication Instructions Recorded acetaminophen 325 mg capsule 650 mg PO Q4H PRN pain #60 caps 09/30/22 naproxen 250 mg tablet 250 - 500 mg PO BID PRN #40 tabs 10/07/22 oxycodone-acetaminophen 5 mg-325 1 - 2 tab PO Q4H PRN Moderate to 10/07/22 mg tablet (Percocet) severe pain #18 tabs Allergies Allergy/AdvReac Type Severity Reaction Status Date / Time No Known Allergies Allergy Verified 10/07/22 09:50 General Stated Complaint: Fall/Non TraumaCriteria SALVADOR: 3 Review of Systems <Dania Christensen NP - Last Filed: 10/02/22 15:28> All systems reviewed & are unremarkable except as noted in HPI and below PFSH <Dania Christensen NP - Last Filed: 10/02/22 15:28> All Active Problems GERD (gastroesophageal reflux disease) (Chronic) Chronic low back pain (Chronic) IUD surveillance (Acute) Complete rupture of right proximal hamstring tendon (Acute 09/30/22) Surgical History hip surgery right Labral repair Hx of colonoscopy Family History Mother Personal history of malignant neoplasm skin Father Hyperlipidemia Brother Hyperlipidemia Grandfather Personal history of malignant neoplasm Liver Grandfather Heart disease Grandmother Personal history of malignant neoplasm Lung Grandmother Diabetes Stroke Social History Smoking/Tobacco Use Status: Current-Occasional Tobacco Type: cigarettes Smoking risk assessment performed?: Yes Alcohol Intake: current Alcohol Intake frequency: holidays/special occasions only Drug use: Never Substance use type: does not use Additional Social history: unable to assess privately Female Reproductive History Menstrual control method: progestin IUCD History History 2 Para 2 Hx # Term Pregnancies Multiple births Hx # Pregnancies Ectopic pregnancies AB induced Hx Number of Living Children AB spontaneous Course <Dania Christensen NP - Last Filed: 10/02/22 15:28> Vital Signs Vital signs: Vital Signs Temperature 36.6 C 09/30/22 09:25 Pulse 58 L 09/30/22 09:25 Respiratory Rate 18 09/30/22 09:25 Blood Pressure 129/59 L 09/30/22 09:25 Pulse Oximetry 99 09/30/22 09:25 Temperature 36.6 C 09/30/22 09:25 Pulse 53 L 09/30/22 19:04 Respiratory Rate 12 09/30/22 19:04 Respiratory Effort Normal 09/30/22 09:34 Blood Pressure 101/60 09/30/22 19:04 Blood Pressure Position Supine 09/30/22 09:25 Pulse Oximetry 98 09/30/22 19:04 Oxygen Delivery Method Room Air 09/30/22 19:04 Oxygen Flow Rate 0 09/30/22 19:04 Pain Level 2 09/30/22 09:25 Sign Out <Dania Christensen NP - Last Filed: 10/02/22 15:28> Sign Out Data: Sign Out Comment: Care signed out to MYNOR Christensen with plan to follow-up on MRI of the right thigh and knee and reassess patient in terms of ability to ambulate. Patient has received fentanyl earlier today followed by Toradol 30 mg IV and then Dilaudid 1 mg IV. I will order oxycodone 5 mg at this time. Last updated by Perry Pinto MD at 09/30/22 16:08
[2022-09-30 20:58] VITALS: BP 117/70; PULSE 75; RESP 18; TEMP 36.9; O2SAT 98
== END 2022-09-30 21:07 | disposition home or self-care (01) ==
PROVIDERS: Emergency Provider Nurse Practitioner Acute Care; PCP Family Medicine
DX: S76.311A Strain of muscle, fascia and tendon of the posterior muscle group at thigh level, right thigh, initial encounter (principal); X50.9XXA Other and unspecified overexertion or strenuous movements or postures, initial encounter
CPT/HCPCS: 36415; 73552; 96365; 96375; 99284; 73718; J0131; J1170; J1885

== ENCOUNTER 2022-10-07 09:27 | Day surgery (SDC) | payer BC, SELFPAY ==
[2022-10-07] VITALS (7 sets, daily range): BP systolic 87–111; BP diastolic 54–71; PULSE 55–78; RESP 14–16; TEMP 35.9–36.7; O2SAT 96–99; BMI 30.2
--- NOTE | 2022-10-07 07:26 | PDOC.DSDIS_ITS ---
Date of service: 10/07/22 Time of Service: 15:00 Discharge Plan Disposition Patient Disposition: Home Discharge Details Attending Provider: Dax Cedeño Primary Care Provider: Malena Mahmood Home Meds and New Rx's Prescriptions: New naproxen 250 mg tablet 250 - 500 mg PO BID PRNQty: 40 0RF Rx Instructions: take with a meal oxycodone-acetaminophen [Percocet] 5-325 mg tablet 1 - 2 tab PO Q4H MDD 30 mg PRN (Reason: Moderate to severe pain) Qty: 18 0RF Continued Mirena 20 mcg/24 hours (5 yrs) 52 mg intrauterine device 1 device IY ONCE escitalopram oxalate 10 mg tablet 10 mg PO HS Patient Comments: TAKE 1/2 TABLET BY MOUTH EVERY MORNING acetaminophen 325 mg capsule 650 mg PO Q4H PRN (Reason: pain) Qty: 60 0RF Discontinued ibuprofen 600 MG tablet 600 mg PO QID PRN (Reason: Pain) Qty: 15 0RF Discharge Instructions Additional Instructions: Surgery: Right proximal hamstring repair Activity: Protected weightbearing with crutches for 6 weeks. Avoid hip flexion past 90 degrees. Avoid knee extension while hip is flexed. Minimal/gentle active hip extension and knee flexion also for 6 weeks. After 6 weeks, start active hip and knee range of motion- avoid deep hip flexion and avoid hip flexion combined with knee extension. After 8 weeks, gently advance to full range of motion After 10 weeks, start isometric strengthening with knee flexed 60+ degrees After 12 weeks, start concentric and closed?chain strengthening. After 3 months, may start gentle spin/bike After 4 months, may start open?chain activities like jogging A physical therapy prescription will be sent electronically to begin in about 4- 6 weeks. Prescriptions: Aspirin 81 mg take 1 daily to prevent a blood clot for 30 days Naproxen 250 mg take 1-2 every 12 hours with a meal as needed for moderate pain Oxycodone-acetaminophen 5-325 mg take 1-2 every 4-6 hours as needed for severe pain (contains Tylenol) You may use [id number]-wkfwoss Tylenol (acetaminophen) as needed for mild pain. These pain medications may be taken all at once or in different combinations as needed. Also, recommend Colace (docusate) as a stool softener as surgery and pain medicine cause constipation. You may try hacb-rll-zurssab diphenhydramine (Benadryl) 25-50 mg nightly as a sleep aid Dressings: Leave dressing in place until follow-up. Keep clean and dry at all times. Follow-up: 10-[address] Cedeño You may take off the leg compression stockings this evening at home. You may also leave them on a few days longer if you have a history of leg swelling or edema. Let us know right away if you develop any redness, drainage, fevers, chest pain, or trouble breathing. Do not drink alcohol or drive for at least 24 hours after anesthesia. Please call the office during business hours with any questions or concerns. Discharge Orders Discharge Orders: Discharge Order (Routine); Ordered 10/07/22 Ordered By: Dax Cedeño DS: Diagnosis Discharge Diagnosis (1) Complete rupture of right proximal hamstring tendon: Status: Acute
--- NOTE | 2022-10-07 07:26 | W.PM.OP ---
Date of service: 10/07/22 Time of Service: 13:00 Operative Note Operative Note DATE OF PROCEDURE: 10/07/22 PRE-OP DIAGNOSIS: Complete right proximal hamstring rupture POST-OP DIAGNOSIS: same PROCEDURE: Right proximal hamstring repair, CPT #24794 SURGEON: Dax Cedeño ROUTE DRIVER COIN MACHINES: Chasity Gore ROUTE DRIVER COIN MACHINES: Nomi Borrero ANESTHESIA TYPE: Local By Surgeon and Spinal Refer to Anesthesia Record ESTIMATED BLOOD LOSS: 20 COMPLICATIONS: None Patient was transported to: PACU Patient's condition: stable Implants: 4x 4.75mm Arthex SwiveLock Indications: Please see complete medical record for details. Procedure Description: In the operating room, spinal anesthesia was induced. The patient was positioned prone on the operating room table. All bony prominences were well-padded. Preoperative antibiotics were administered. The posterior proximal right thigh was prepped and draped. The correct patient, procedure, and side of the procedure were all verified prior to incision. The hamstring origin ischial tuberosity was palpated. In the gluteal crease a few centimeters distal a transverse incision was made. There were no major cutaneous nerve branches encountered. The fascia between the gluteus risa and hamstrings was divided. Blunt digital dissection was carried down to the zone of injury with hematoma expressed. The hamstring origin was essentially bald with no attached tendons. The hamstring tendons and muscles were mildly retracted distally. Mobilizing the hamstrings medially care was taken to identify the sciatic nerve just lateral injured tendons. The sciatic nerve was gently retracted laterally and released from the hamstring tendons to allow repair without tension or compression on the nerve. Blunt retractor was maintained on the medial side protecting the sciatic nerve. Glenoid spiked retractors were placed on the ischial tuberosity exposing origin nicely. There was minimal soft tissue remnant, which was removed with rongeur. Rasps were then used to abrade the bone and optimize bone tendon healing. The common tendon was large and there was adequate bony surface for a speed bridge type repair. 3.5 mm drill followed by SwiveLock tap and punch were used to place the distal and deep row 4.75 mm SwiveLock anchors loaded with FiberTape. A FiberLink was used to shuttle the FiberTape repair sutures as well as the additional sliding FiberWire were sutures through the avulsed tendon at the appropriate levels. Provisional reduction was confirmed with tension on the FiberTape's and draping the tendon over the lateral ischial tuberosity origin. The knee was gently bent. The proximal superficial row anchors were drilled and tapped and the speed bridge was completed with a fiber tape from each of the other row anchors. There was excellent tissue reduction and compression. A single distal row FiberWire from each side was then shuttled back through the tendon repair with a free needle, ends tied together, and then sliding mechanism used to secure the repair achieving additional compression over the construct and knots tied directed deeply. The proximal row FiberWire's were removed. The repair was tested and stable through the range of motion and direct manipulation. The sciatic nerve was visualized separate safely laterally from the repair. The wound was copiously irrigated with normal saline. The gluteal and hamstring fascia was repaired with 2-0 Monocryl. Superficial layers irrigated. Fat fascia space closed with 2-0 Monocryl. Subcutaneous layers closed with 2-0 Monocryl buried interrupted. Skin closed with 3-0 Monocryl running subcuticular. Skin glue applied over the incision. Mastisol applied around the incision. A Mepilex Band-Aid was placed on the skin. The patient awoke from anesthesia without complication and was transferred to the recovery room in a stable condition with the knee gently bent.
[2022-10-07] MEDS: Lactated Ringers 1,000 ML 30 ML IV (10:32)
--- NOTE | 2022-10-07 11:04 | W.ANESPRE ---
General Info Date of Service Date Performed: 10/07/22 Height: 5 ft 10 in Weight: 95.7 kg Body Mass Index (BMI): 30.2 Surgical Procedure: Operation Date: 10/07/22 10:25 Proposed Procedure Side Surgeon p Proximal Hamstring Repair Right Dax Cedeño MD Meds Allergies and Home Medications Allergies Allergy/AdvReac Type Severity Reaction Status Date / Time No Known Allergies Allergy Verified 10/07/22 09:50 Home Medication Medication Instructions Recorded ibuprofen 600 mg tablet 600 mg PO QID PRN Pain #15 tabs 11/10/16 levonorgestrel 21 mcg/24 hours (8 1 device intrauterine ONCE 05/14/19 yrs) 52 mg intrauterine device (Mirena) acetaminophen 325 mg capsule 650 mg PO Q4H PRN pain #60 caps 09/30/22 escitalopram oxalate 10 mg tablet 10 mg PO HS 09/30/22 Current Visit Medications: Current Medications Generic Name Dose Route Start Last Admin Trade Name Freq PRN Reason Stop Dose Admin Ringer's Solution 1,000 mls @ 30 mls/hr 10/07/22 06:00 10/07/22 10:32 IV 11/05/22 23:59 30 mls/hr INFUSION KEVAN Administration Cefazolin Sodium/Dextrose 2 gm in 50 mls @ 100 mls/hr 10/07/22 06:00 Ancef Duplex IVPB 11/05/22 23:59 PREOP KEVAN IV Miscellaneous Supplies 1 each 10/07/22 06:00 Iv Access IV 11/05/22 23:59 DIRECTED KEVAN Oxycodone HCl 0 mg 10/07/22 07:26 Oxycodone 5 Mg Tab PO 11/06/22 07:25 Q3H PRN PRN Pain Sodium Chloride 0 ml 10/07/22 06:00 Normal Saline Flush 10 Ml Syr IV 11/05/22 23:59 PRN PRN Sodium Chloride 0 ml 10/07/22 06:00 Normal Saline 10 Ml Vial IJ 11/05/22 23:59 DIRECTED PRN Sterile Water 0 ml 10/07/22 06:00 Water,Injection,Sterile 10 Ml Vial IJ 11/05/22 23:59 DIRECTED PRN PFSH Active Problems Active Problems: Problem Status Onset Code GERD (gastroesophageal reflux disease) K21.9 Chronic low back pain M54.5, G89.29 IUD surveillance Z30.431 Complete rupture of right proximal hamstring tendon 09/30/22 S76.311A Medical History Medical History Comments:: Pt reports having 1 cigrarette this morning Surgical History Surgical History hip surgery right Labral repair Hx of colonoscopy Tobacco Smoking/Tobacco Use Status: Current-Occasional Tobacco Type: cigarettes Passive smoking exposure: No Alcohol Alcohol Intake: current Alcohol intake frequency: holidays/special occasions only Substance Use Substance use: Never Substance use type: does not use Prental History History 2 Para 2 Hx # Term Pregnancies Multiple births Hx # Pregnancies Ectopic pregnancies AB induced Hx Number of Living Children AB spontaneous Vital Signs and Lab Results Vital Signs Most Recent Vital Signs in EMR: Most Recent Vital Signs Temp Pulse Resp BP Pulse Ox 35.9 C L 78 16 108/57 L 99 10/07/22 09:57 10/07/22 09:57 10/07/22 09:57 10/07/22 09:57 10/07/22 09:57 Point of Care Results Point of Care Results: POC- Test(urine) Negative 10/07/22 10:43 Lab Results Blood Type / Crossmatch: No Data to Display Complete Blood Count: No Data to Display Complete Metabolic Panel: No Data to Display Liver Function Panel: No Data to Display Coagulation Panel: No Data to Display Cardiac Panel: No Data to Display Arterial Blood Gas: No Data to Display Venous Blood Gas: No Data to Display Pancreas Panel: No Data to Display Thyroid Panel: No Data to Display Infectious Disease: No Data to Display Blood Cultures: No Data to Display Toxicology Panel: No Data to Display Panel: No Data to Display Anesthesia Assessment and Plan Anesthesia History Personal History: No History of Anesthesia Complications and Unknown Anesthesia History Family History: No Family History of Anesthesia Complications Exercise Tolerance Exercise Tolerance: Metabolic Equivalents>4 Pertinent Negatives Pertinent Negatives: No Symptoms of GERD, No Major Cardiovascular Symptoms or Complaints, No Major Pulmonary Symptoms or Complaints and No History of CVA/TIA Cardiac & Pulmonary Exam Cardiac Exam: Normal S1/S2 Heart Sounds Pulmonary Exam: Clear Bilateral Breath Sounds Cardiac and Pulmonary Comment:: Inhaler in past for bronchitis Implantable Cardiac Device Does patient have a Pacemaker or an ICD?: No Airway Exam Known Difficult Airway: No Mallampati Class: 2 Mouth Opening: Normal (> 3cm) Thyromental Distance: Greater than 3 cm Neck Range of Motion: Full ROM Neck Circumference: Normal Teeth Condition: Normal Dentition ASA Classification ASA Score: ASA 2 Emergency Case?: No NPO Status NPO Status: NPO Clears >2 hours, Solids >8 hours Status Status: Negative HCG Anesthesia Plan Resuscitation Status: Full Code Anesthesia Technique: Spinal Anesthesia Airway Planned: Natural Airway Monitors Used: Standard Monitors
[2022-10-07] MEDS: ceFAZolin 2 GM/50 ML BAG IVPB (11:46)
--- NOTE | 2022-10-07 15:37 | W.ANESPOSTOP ---
Postoperative Evaluation Date, Time and Location Date Performed: 10/07/22 Time Performed: 15:37 Patient Location: Day Surgery Unit Vital Signs Most Recent Imported Vital Signs: Most Recent Vital Signs Temp Pulse Resp BP Pulse Ox 36.6 C 59 L 16 87/55 L 98 10/07/22 15:04 10/07/22 15:04 10/07/22 15:04 10/07/22 15:04 10/07/22 15:04 Pain Score Most Recent Pain Score: Most Recent Pain Score Pain Level 0 10/07/22 15:04 Assessment Mental Status: Awake (Alert & Oriented to Patient Baseline) Airway and Respiratory Function: Patent airway with normal (patient baseline) respiratory exam Cardiovascular Function: Hemodynamically Stable Hydration Status: Adequately Hydrated Nausea & Vomiting: No Nausea or Vomiting Pain: Pt. Denies Any Pain Peripheral Nerve Block: Other (Some local from Dr. Cedeño still in place my butt is numb like when you've been on a long road trip indicated more numbness to the surgical side) Postoperative Comments:: Discussed spinal wearing off, discussed need to ambulate and void prior to discharge. Patient is aware. Answered all questions in presence of DSU RUBINA Saha. Patient appropriate for discharge from Anesthesia services at this time.
== END 2022-10-07 16:45 | disposition home or self-care (01) ==
PROVIDERS: PCP Family Medicine; Visit Provider Student in an Organized Health Care Education/Training Program
PROC: (CPT 27385; principal; 2022-10-07 10:15)
DX: S76.311A Strain of muscle, fascia and tendon of the posterior muscle group at thigh level, right thigh, initial encounter (principal); X58.XXXA Exposure to other specified factors, initial encounter
CPT/HCPCS: 27385; 81025; J0690; J1100; J1885; J2250; J2405

== ENCOUNTER 2023-01-04 10:11 | Outpatient (REF) | payer BC, SELFPAY ==
--- NOTE | 2023-01-04 09:45 | PAPFT_PTH ---
PATIENT: Selma Osorio LOC: [facility] U#:[id number] AGE/SX: 42/F ROOM: RE01/04/[address]: Susan Lund NP : 1980 BED: DIS: 01/04/2023 SPEC #: [id number] RECD: 01/04/23 13:22 STATUS: ELIAN MANCUSO #: [id number] DEBBIE: 01/04/23 09:[address]: Susan Lund NP DEPT: [facility] Cytology RECD BY: Lynette Cartagena ENTERED: 01/04/23 13:23 SP TYPE: PAPFT OTHR DR: Malena Mahmood Tissues: 1 - CX/ENDOCX FOR PAP SMEARS Procedures: PAP THIN PREP/UVM Screening HPV DNA PROBE Comments: [id number]
== END 2023-01-04 10:12 | disposition home or self-care (01) ==
LOC: LBN 10:11
PROVIDERS: PCP Family Medicine; Visit Provider Nurse Practitioner Women's Health
DX: Z12.4 Encounter for screening for malignant neoplasm of cervix (principal); Z11.51 Encounter for screening for human papillomavirus (HPV)
CPT/HCPCS: 88142; 87624

== ENCOUNTER → 2023-01-20 01:36 | Outpatient (CLI) | payer BC, SELFPAY ==
--- NOTE | 2023-01-20 | DI.MAMMO_ITS ---
Exam(s) MAMMO SCREENING EXAM: MAMMO SCREENING CLINICAL HISTORY: SCREENING, Z12.39 TECHNIQUE: Mammograms were interpreted according to the usual protocol including computer analysis w [employer] CAD system, tomosynthesis and C-view imaging. COMPARISON: 2019 through 2021 FINDINGS: The breasts are composed of scattered fibroglandular densities, Breast Density category B. No suspicious masses or suspicious microcalcifications are seen. No skin thickening or abnormal axillary lymph nodes are seen. There has been no significant change from prior exams. IMPRESSION: BI-RADS Category 1, Negative mammogram Yearly screening mammography is recommended. Breast Density - Category B, scattered fibroglandular densities. A negative radiographic report should not delay biopsy if a dominant or clinically suspicious mass is present. Up to ten percent of cancers are not identified on mammography. A negative report may reinforce clinical impression. Adenosis and dense breasts may obscure an underlying neoplasm. False positive reports average 6 to 10%. Patient will receive a letter notifying them of these results.
== END ==
PROVIDERS: PCP Family Medicine; Visit Provider Nurse Practitioner Women's Health
DX: Z12.31 Encounter for screening mammogram for malignant neoplasm of breast (principal)
CPT/HCPCS: 77063; 77067

== ENCOUNTER 2023-03-01 15:21 | Outpatient (CLI) | payer BC, SELFPAY ==
--- NOTE | 2023-03-01 13:30 | DI.RAD_ITS ---
Exam(s) XR HIP RT COMPLETE AP PELVIS EXAM: XR HIP RT COMPLETE AP PELVIS CLINICAL HISTORY: RIGHT HIP PAIN. TECHNIQUE: 2D digital imaging was performed. Two views COMPARISON: CR PELVIS AP from 08/12/2014 FINDINGS: BONES: No acute fracture is present. No bony destructive lesion is seen. JOINTS: No dislocation present. Hip joint spaces are maintained. No significant acetabular spurrin g. SOFT TISSUE: Normal. IUD noted. IMPRESSION: No acute abnormality. DATA REPOSITORY: RADIATION DOSE DELIVERED:
== END 2023-03-01 15:22 | disposition home or self-care (01) ==
LOC: DIORS 15:21
PROVIDERS: PCP Family Medicine; Visit Provider Student in an Organized Health Care Education/Training Program
DX: M25.551 Pain in right hip (principal)
CPT/HCPCS: 73502

== ENCOUNTER → 2023-03-24 03:03 | Outpatient (CLI) | payer BC, SELFPAY ==
--- NOTE | 2023-03-24 07:45 | DI.MRI_ITS ---
Exam(s) MR LOWER JOINT RT WO EXAM: MR LOWER JOINT RT WO CLINICAL HISTORY: ? LABRAL TEAR, TROCH BURSITIS, HIP PAIN, M25.559 TECHNIQUE: Multiplanar multisequence MRI of Pelvis was performed COMPARISON: CR XR HIP RT COMPLETE AP PELVIS from 03/01/2023 FINDINGS: Bones: There is no fracture or contusion pattern. No bone marrow edema is seen. Joints: No significant joint effusion. Focal area of high are signal seen at the superior labrum, tosha picious for small tear.. The SI joints and symphysis pubis are well maintained. Musculotendinous structures: Edema seen in distal gluteus medius tendon and inferior gluteus minimus muscle and tendon. Small amount of fluid seen between distal iliopsoas tendon and lesser trochanter. Small amount of fluid seen between iliotibial band and greater trochanter. Intrapelvic structures demonstrate no significant abnormality. IMPRESSION: Tendinitis involving gluteus medius and minimus. Question of small superior labral tear. DATA REPOSITORY:
== END ==
PROVIDERS: PCP Family Medicine; Visit Provider Student in an Organized Health Care Education/Training Program
DX: M76.01 Gluteal tendinitis, right hip (principal)
CPT/HCPCS: 73721

== ENCOUNTER 2023-06-21 11:02 | Emergency (ER) | payer BC, SELFPAY ==
[2023-06-21 11:05] VITALS: BP 177/109; PULSE 72; RESP 18; TEMP 36.5; O2SAT 97
--- NOTE | 2023-06-21 12:26 | W.ED.GENAD ---
HPI General Date/Time Provider Initiated Documentation: 06/21/23 11:33. HPI Narrative: 43-year-old female presents with laceration to her right thumb on a pair of scissors. Tetanus up-to-date, denies any additional injuries. No reported history of coagulopathy Related Data Home Medications Medication Instructions Recorded Confirmed levonorgestrel 21 mcg/24 hours (8 1 device intrauterine ONCE 05/14/19 06/21/23 yrs) 52 mg intrauterine device (Mirena) acetaminophen 325 mg capsule 650 mg (2 x 325 mg) PO Q4H PRN 09/30/22 06/21/23 pain #60 caps escitalopram oxalate 10 mg tablet 10 mg PO HS 09/30/22 06/21/23 naproxen 250 mg tablet 250 - 500 mg (1 - 2 x 250 mg) PO 10/07/22 06/21/23 BID PRN #40 tabs Previous Rx's Medication Instructions Recorded acetaminophen 325 mg capsule 650 mg (2 x 325 mg) PO Q4H PRN 09/30/22 pain #60 caps naproxen 250 mg tablet 250 - 500 mg (1 - 2 x 250 mg) PO 10/07/22 BID PRN #40 tabs Allergies Allergy/AdvReac Type Severity Reaction Status Date / Time No Known Allergies Allergy Verified 06/21/23 11:08 General Stated Complaint: Laceration SALVADOR: 3 Course Vital Signs Vital signs: Vital Signs Temperature 36.5 C 06/21/23 11:05 Pulse 72 06/21/23 11:05 Respiratory Rate 18 06/21/23 11:05 Blood Pressure 177/109 H 06/21/23 11:05 Pulse Oximetry 97 06/21/23 11:05 Temperature 36.5 C 06/21/23 11:05 Temperature Source Skin 06/21/23 11:05 Pulse 72 06/21/23 11:05 Respiratory Rate 18 06/21/23 11:05 Blood Pressure 177/109 H 06/21/23 11:05 Blood Pressure Position Sitting 06/21/23 11:05 Pulse Oximetry 97 06/21/23 11:05 Oxygen Delivery Method Room Air 06/21/23 11:05 Oxygen Flow Rate 0 06/21/23 11:05 Pain Level 7 06/21/23 11:37 Procedures Laceration Laceration 1: Site: hand Side (If applicable): right Size (cm): 1 Description: linear Depth: simple, single layer Amount of anesthesia used (mL): 3 Pre-repair: irrigated extensively Skin layer closed with: other Size (cm): 4-0 Number of sutures: 3 Technique: simple, interrupted Size: 4-0 Medical Decision Making 43-year-old female presenting with laceration to right thumb Denies any additional injuries Tetanus up-to-date Earlier return precautions reviewed and patient expressed understanding Quality:SDOH Health Related Social Needs: No Data to Display PFSH All Active Problems Laceration of right thumb (Acute) Tendinopathy of gluteus medius (Acute) Right Pain of right sacroiliac joint (Acute) Labral tear of right hip joint (Acute) Trochanteric bursitis of right hip (Acute) GERD (gastroesophageal reflux disease) (Chronic) Chronic low back pain (Chronic) IUD surveillance (Acute) Complete rupture of right proximal hamstring tendon (Acute 09/30/22) s/p right proximal hamstring repair 10/07/22 Surgical History hip surgery right Labral repair Hx of colonoscopy Family History Mother Personal history of malignant neoplasm skin Father Hyperlipidemia Brother Hyperlipidemia Grandfather Personal history of malignant neoplasm Liver Grandfather Heart disease Grandmother Personal history of malignant neoplasm Lung Grandmother Diabetes Stroke Social History Smoking/Tobacco Use Status: Former Tobacco Use Quit status: has quit before Second Hand Exposure: No Smoking risk assessment performed?: Yes Alcohol Intake: current Alcohol Intake frequency: holidays/special occasions only Drug use: Never Substance use type: does not use current occupation: works at [employer] office Sexually active: Yes Current gender identity: female What type of physical activity do you participate in: regular exercise Duration: 30-45 minutes/day Frequency: 5-6 times per week Seatbelt use: always Helmet use: Yes Drive intox or ride w/intox special needs bus driver: No Do you feel safe at home: Yes Do you feel safe in your relationship?: Yes Additional Social history: unable to assess privately Female Reproductive History Menstrual control method: progestin IUCD History History 2 Para 2 Hx # Term Pregnancies Multiple births Hx # Pregnancies Ectopic pregnancies AB induced Hx Number of Living Children AB spontaneous Discharge Plan Disposition Patient Disposition: Home Condition: Stable Discharge Details Clinical Impression: Laceration of right thumb Primary Care Provider: Malena Mahmood ED Provider: Lynette Padilla Home Meds and New Rx's Prescriptions: Continued Mirena 20 mcg/24 hours (5 yrs) 52 mg intrauterine device 1 device IY ONCE escitalopram oxalate 10 mg tablet 10 mg PO HS Patient Comments: TAKE 1/2 TABLET BY MOUTH EVERY MORNING acetaminophen 325 mg capsule 650 mg PO Q4H PRN (Reason: pain) Qty: 60 0RF naproxen 250 mg tablet 250 - 500 mg PO BID PRNQty: 40 0RF Rx Instructions: take with a meal Discharge Instructions Instructions: Laceration (ED) Additional Instructions: apply bacitracin twice a day keep covered for 3 days and then allow to air dry at night after that period motrin/tylenol for pain do not submerge in water suture removal in 10-12 days return with spreading redness, fever, worsening pain blood pressure rechecked by pcp tetanus in 2025 Referrals: Malena Mahmood [Primary Care Provider] - Discharge Data Discharge Date/Time-TO BE ENTERED AT DEPARTURE: 06/21/23 12:30
[2023-06-21 12:28] VITALS: BP 134/85; PULSE 72; RESP 18; O2SAT 98
== END 2023-06-21 12:30 | disposition home or self-care (01) ==
PROVIDERS: Emergency Provider Physician Assistant; PCP Family Medicine
DX: S61.011A Laceration without foreign body of right thumb without damage to nail, initial encounter (principal); W27.2XXA Contact with scissors, initial encounter
CPT/HCPCS: 12001

== ENCOUNTER 2024-08-09 01:09 | Outpatient (CLI) | payer BC, SELFPAY ==
--- NOTE | 2024-08-09 08:15 | DI.MRI_ITS ---
Exam(s) MR LOWER JOINT LT WO EXAM: MR LOWER JOINT LT WO CLINICAL HISTORY: L HIP PAIN/INJURY S76.302A INJURY LT THIGH TECHNIQUE: Multiplanar multisequence MRI of the hip was performed. COMPARISON: MR MR LOWER JOINT RT WO from 03/24/2023 FINDINGS: MARROW:There is no evidence of hip fracture, bone contusion, nor avascular necrosis. There are no si gnificant osseous lesions. EFFUSION: There is no evidence of left hip joint effusion. BURSAE: There is some mild increased signal lateral to the greater trochanter consistent with gluteus medius tendinitis. There is also some signal abnormality within the distal gluteus medius tendon. No prominent bursitis at this level. Also no evidence of iliopsoas bursitis. HIP JOINT SPACE: There is a small area of signal abnormality in the posterior articular cartilage con sistent with mild chondromalacia.. There is a small focus of signal abnormality in the posterior asp ect of the femoral head at this level. LABRUM: On one sagittal image there is suggestion of a small tear in the anterosuperior labrum. No evidence of paralabral cyst. TENDONS: No evidence of tendinitis nor tendon tears. ISCHIAL TUBEROSITY/HAMSTRING: There is high-grade full-thickness tear of the common hamstrings insert ion tendon which predominantly involves the biceps femora wrists and semitendinosis. There is signif icant fluid signal abnormality interposed between these tendons and the ischial tuberosity. There is mild bone edema in the ischial tuberosity itself. OTHER: There is also signal abnormality evident within the ipsilateral gemellus inferior muscle consi stent with partial tearing. Also signal abnormality in the ipsilateral adductor june. Also some sig nal abnormality more anteriorly in the ipsilateral pectineus and adductor brevis. There is no abnorma l signal evident within the ipsilateral quadratus femoris. Muscles anterior to the hip joint as well as tensor fascia mayank appear intact without abnormal signa l. Incidentally noted is a 1.7 x 1.5 cm cyst in the left ovary which is most probably follicular. IMPRESSION: 1. Main acute finding here is full-thickness high-grade tear of the common hamstrings tendon insertio n at the ischial tuberosity level as described above. There is full-thickness tearing of the common hamstrings attachment part of the biceps femora wrists and semitendinosis. There is partial tearing at the attachment site of the semimembranosus and there is some intraosseous bone edema in the ischia l tuberosity at this level. 2. There is some signal abnormality consistent with strain-partial tearing of the other ipsilateral m usculature around the left hip, as detailed above.. 3. There is no evidence of ipsilateral hip fracture nor hip joint effusion. There may be a tiny osei l tear anterosuperiorly. DATA REPOSITORY:
== END 2024-08-09 01:29 ==
LOC: DI 01:09
PROVIDERS: PCP Family Medicine; Visit Provider Student in an Organized Health Care Education/Training Program
DX: S76.312A Strain of muscle, fascia and tendon of the posterior muscle group at thigh level, left thigh, initial encounter (principal); X58.XXXA Exposure to other specified factors, initial encounter
CPT/HCPCS: 73721

== ENCOUNTER 2024-08-16 11:55 | Day surgery (SDC) | payer BC, SELFPAY ==
[2024-08-16] VITALS (17 sets, daily range): BP systolic 101–123; BP diastolic 59–79; PULSE 55–69; RESP 10–19; TEMP 36.4–36.7; O2SAT 95–98; BMI 29.7
--- NOTE | 2024-08-16 10:34 | W.PM.OP ---
Operative Note Operative Note PRE-OP DIAGNOSIS: Left proximal hamstring rupture POST-OP DIAGNOSIS: same PROCEDURE: Left proximal hamstring repair, CPT #21022 SURGEON: Dax Cedeño HEAVY TRUCK DRIVER: Nomi Borrero ANESTHESIA TYPE: Local By Surgeon, General LMA/ETT and Spinal Refer to Anesthesia Record ESTIMATED BLOOD LOSS: 10 COMPLICATIONS: None Patient was transported to: PACU Patient's condition: stable Implants: 4x 4.75mm Arthex SwiveLock Indications: Please see complete medical record for details. Findings: Complete mildly retracted proximal hamstring rupture Procedure Description: In the operating room, spinal anesthesia was induced. The patient was positioned prone on the operating room table. All bony prominences were well-padded. Preoperative antibiotics were administered. The posterior proximal left thigh was prepped and draped. The correct patient, procedure, and side of the procedure were all verified prior to incision. The proximal hamstring origin on the ischial tuberosity was palpated and marked. The gluteal crease was felt to be too distal to use and hide the incision and still be able to elevate and retract the gluteal musculature given the size, which presented some challenges on the contralateral side. A transverse incision was made between the gluteal crease and the ischial tuberosity. Blunt dissection was used to expose the gluteal fascia which was sharply divided. There were no notable cutaneous nerve branches encountered. Deep blunt dissection was used to localize the the proximal hamstring origin. The size of the gluteal musculature added some challenges to the exposure given the depth and redundant tissue. Once the ischial origin was exposed, bursal fluid was expressed, and the clear complete proximal hamstring rupture was encountered. The tendons were only mildly retracted. Hohmann and glenoid spike retractors were used carefully about the ischium for exposure. A smooth Hohmann was placed between the proximal hamstrings and the sciatic nerve which had been digitally localized and gently confirmed to be mobile and separate from the hamstring repair site. Rongeur and rasp were then used to optimize bone tendon healing taking care to localize the repair starting off the distalmost prominence and continuing up with the clear footprint proximally and laterally. The size of the tendon rupture and bony footprint was amenable to speed bridge repair. The 4 suture anchor sites were then marked and the SwiveLock hard bone drill used for the 2 distal row with 4.75 mm bio composite knotless SwiveLock anchors placed loaded with fiber tapes. A Kevon clamp was used to reduce the tendons over the footprint and a free needle used to shuttle a suture tape FiberLink through the tendon for each anchor at the appropriate level taking care to protect the sciatic nerve. The link was used to shuttle the FiberTape and a knotless repair sutures through the tendon. The knotless repair sutures were then shuttled from each anchor through the other using the knotless anchor eyelet length mechanism and lightly tension confirmed in good rate apposition of proximal hamstring to the prepared origin. The proximal row was then drilled and an additional 2 SwiveLock anchors placed each containing a FiberTape from each of the distal row anchors with excellent reduction and compression across the speed bridge construct. The knotless distal repair sutures were final tightened. These repair sutures and the fiber tapes were cut. All anchors had been confirmed to be completely in bone to avoid prominence. The repair had excellent strength. The sciatic nerve was bluntly confirmed to be outside of the repair and not kinked. The wound was copiously irrigated with normal saline. Deep and intermediate gluteal tissue was reapproximated with 0 Vicryl. Gluteal fascia was then closed using 0 Vicryl. Subcutaneous tissue was irrigated and then closed with 2-0 Monocryl buried interrupted. The skin was closing 3-0 Monocryl subcuticular. Skin glue applied over the incision and Mastisol used to secure and Mepilex Band-Aid. The patient awoke from anesthesia without complication and was transferred to the recovery room in a stable condition with the knee gently bent. Date of Procedure: 08/16/24
--- NOTE | 2024-08-16 10:35 | PDOC.DSDIS_ITS ---
Date of service: 08/16/24 Discharge Plan Disposition Patient Disposition: Home Condition: Stable Discharge Details Attending Provider: Dax Cedeño Primary Care Provider: Malena Mahmood Home Meds and New Rx's Prescriptions: New aspirin 81 mg tablet,delayed release (DR/EC) 81 mg PO DAILY 30 Days Qty: 30 0RF naproxen 250 mg tablet 250 - 500 mg PO BID PRN (Reason: Moderate pain) Qty: 40 0RF oxycodone 5 mg tablet 5 - 10 mg PO Q4H PRN (Reason: Moderate to severe pain) Qty: 18 0RF Continued Mirena 20 mcg/24 hours (5 yrs) 52 mg intrauterine device 1 device IY ONCE escitalopram oxalate 10 mg tablet 10 mg PO HS Patient Comments: TAKE 1/2 TABLET BY MOUTH EVERY MORNING acetaminophen 325 mg capsule 650 mg PO Q4H PRN (Reason: pain) Qty: 60 0RF docusate sodium [Colace] 100 mg capsule 100 mg PO DAILY polyethylene glycol 3350 [Miralax] 17 gram/dose powder 17 g PO DAILY PRN Discharge Instructions Additional Instructions: Surgery: Left proximal hamstring repair 08/16/24 Activity: Protected weightbearing with crutches for 6 weeks. Avoid hip flexion past 90 degrees. Avoid knee extension while hip is flexed. Minimal/gentle active hip extension and knee flexion also for 6 weeks. After 6 weeks, start active hip and knee range of motion- avoid deep hip flexion and avoid hip flexion combined with knee extension. After 8 weeks, gently advance to full range of motion After 10 weeks, start isometric strengthening with knee flexed 60+ degrees After 12 weeks, start concentric and closed?chain strengthening. After 3 months, may start gentle spin/bike After 4 months, may start open?chain activities like jogging A physical therapy prescription will be sent electronically to begin in about 4- 6 weeks. Prescriptions: Aspirin 81 mg take 1 daily to prevent a blood clot for 30 days Naproxen 250 mg take 1-2 every 12 hours with a meal as needed for moderate pain Oxycodone-acetaminophen 5-325 mg take 1-2 every 4-6 hours as needed for severe pain (contains Tylenol) You may use [id number] Tylenol (acetaminophen) as needed for mild pain. These pain medications may be taken all at once or in different combinations as needed. Also, recommend Colace (docusate) as a stool softener as surgery and pain medicine cause constipation. You may try [id number] diphenhydramine (Benadryl) 25-50 mg nightly as a sleep aid Dressings: Leave dressing in place until follow-up. Keep clean and dry at all times. Follow-up: 10-[address] Cedeño You may take off the leg compression stockings this evening at home. You may also leave them on a few days longer if you have a history of leg swelling or edema. Let us know right away if you develop any redness, drainage, fevers, chest pain, or trouble breathing. Do not drink alcohol or drive for at least 24 hours after anesthesia. Please call the office during business hours with any questions or concerns. Discharge Orders Discharge Orders: Discharge Order (Routine); Ordered 08/16/24 Ordered By: Dax eCdeño DS: Diagnosis Discharge Diagnosis (1) Left proximal hamstring tendon rupture: Status: Acute
--- NOTE | 2024-08-16 12:51 | W.ANESPRE ---
General Info Date of Service Date Performed: 08/16/24 Height: 5 ft 11 in Weight: 96.8 kg Body Mass Index (BMI): 29.7 Surgical Procedure: Operation Date: 08/16/24 13:10 Proposed Procedure Side Surgeon p Proximal Hamstring Tear Left Dax Cedeño MD Actual Procedure Side Surgeon p Proximal Hamstring Tear Left Dax Cedeño MD Pre-Op Diagnosis Post-Op Diagnosis Left proximal hamstring tendon rupture Meds Allergies and Home Medications Allergies Allergy/AdvReac Type Severity Reaction Status Date / Time No Known Allergies Allergy Verified 08/16/24 12:18 Home Medication ?Medication ?Instructions ?Recorded levonorgestrel 21 mcg/24 hr (up to 1 device intrauterine ONCE 05/14/19 8 years) 52 mg intrauterine device (Mirena) acetaminophen 325 mg capsule 650 mg (2 x 325 mg) PO Q4H PRN 09/30/22 pain #60 caps escitalopram oxalate 10 mg tablet 10 mg PO HS 09/30/22 docusate sodium 100 mg capsule 100 mg PO DAILY 08/14/24 (Colace) polyethylene glycol 3350 17 17 g PO DAILY PRN 08/14/24 gram/dose oral powder (Miralax) Current Visit Medications: Current Medications Generic Name Dose Route Start Last Admin Trade Name Freq PRN Reason Stop Dose Admin Acetaminophen 1,000 mg 08/16/24 10:34 Acetaminophen 500 Mg Tab PO 09/15/24 10:33 Q6H PRN PRN Ringer's Solution 1,000 mls @ 30 mls/hr 08/16/24 06:00 IV 09/05/24 23:59 INFUSION KEVAN Cefazolin Sodium/Dextrose 2 gm in 50 mls @ 100 mls/hr 08/16/24 06:00 Ancef Duplex IVPB 09/05/24 23:59 PREOP KEVAN Tranexamic Acid/Sodium Chloride 1,000 mg in 100 mls @ 600 mls/hr 08/16/24 06:00 IVPB 09/05/24 23:59 PREOP KEVAN IV Miscellaneous Supplies 1 each 08/16/24 06:00 Iv Access IV 09/05/24 23:59 DIRECTED KEVAN Naproxen 250 - 500 mg 08/16/24 10:36 Naproxen 250 Mg Tab PO 09/15/24 10:35 BID PRN PRN Oxycodone HCl 0 mg 08/16/24 10:34 Oxycodone 5 Mg Tab PO 09/15/24 10:33 Q3H PRN PRN Pain Sodium Chloride 0 ml 08/16/24 06:00 Normal Saline Flush 10 Ml Syr IV 09/05/24 23:59 PRN PRN Sodium Chloride 0 ml 08/16/24 06:00 Normal Saline 10 Ml Vial IJ 09/05/24 23:59 DIRECTED PRN Sterile Water 0 ml 08/16/24 06:00 Water,Injection,Sterile 10 Ml Vial IJ 09/05/24 23:59 DIRECTED PRN PFSH Active Problems Active Problems: Problem Status Onset Code Left proximal hamstring tendon rupture Acute 08/12/24 S76.312A Tendinopathy of gluteus medius Acute M67.959 Pain of right sacroiliac joint Acute M53.3 Labral tear of right hip joint Acute S73.191A Trochanteric bursitis of right hip Acute M70.61 GERD (gastroesophageal reflux disease) Chronic K21.9 Chronic low back pain Chronic M54.5, G89.29 IUD surveillance Acute Z30.431 Medical History Medical History Comments:: Pt reports having 3 cigarette this morning Surgical History Surgical History Complete rupture of right proximal hamstring tendon (09/30/22) s/p right proximal hamstring repair 10/07/22 Hx of colonoscopy hip surgery right Labral repair Tobacco Smoking/Tobacco Use Status: Current-Occasional Tobacco Type: cigarettes Smoking cigarettes per day: 6 Passive smoking exposure: Yes Second hand exposure: No Alcohol Alcohol Intake: current Alcohol intake frequency: holidays/special occasions only Substance Use Substance use: Never Substance use type: does not use Prental History History 2 Para 2 Hx # Term Pregnancies Multiple births Hx # Pregnancies Ectopic pregnancies AB induced Hx Number of Living Children AB spontaneous Vital Signs and Lab Results Vital Signs Most Recent Vital Signs in EMR: Most Recent Vital Signs Temp Pulse Resp BP Pulse Ox 36.6 C 69 16 119/64 97 08/16/24 12:05 08/16/24 12:05 08/16/24 12:05 08/16/24 12:05 08/16/24 12:05 Point of Care Results Point of Care Results: POC- Test(urine) Negative 08/16/24 12:50 Lab Results Blood Type / Crossmatch: No Data to Display Complete Blood Count: No Data to Display Complete Metabolic Panel: No Data to Display Liver Function Panel: No Data to Display Coagulation Panel: No Data to Display Cardiac Panel: No Data to Display Arterial Blood Gas: No Data to Display Venous Blood Gas: No Data to Display Pancreas Panel: No Data to Display Thyroid Panel: No Data to Display Infectious Disease: No Data to Display Blood Cultures: No Data to Display Toxicology Panel: No Data to Display Panel: No Data to Display Anesthesia Assessment and Plan Anesthesia History Personal History: No History of Anesthesia Complications Family History: No Family History of Anesthesia Complications Exercise Tolerance Exercise Tolerance: Metabolic Equivalents>4 Pertinent Negatives Pertinent Negatives: No Symptoms of GERD Cardiac & Pulmonary Exam Cardiac Exam: Normal S1/S2 Heart Sounds Pulmonary Exam: Clear Bilateral Breath Sounds Implantable Cardiac Device Does patient have a Pacemaker or an ICD?: No Airway Exam Known Difficult Airway: No Mallampati Class: 2 Mouth Opening: Normal (> 3cm) Thyromental Distance: Greater than 3 cm Neck Range of Motion: Full ROM Neck Circumference: Normal Teeth Condition: Normal Dentition ASA Classification ASA Score: ASA 2 Emergency Case?: No NPO Status NPO Status: NPO Clears >2 hours, Solids >8 hours Status Status: Negative HCG Anesthesia Plan Resuscitation Status: Full Code Anesthesia Technique: Spinal Anesthesia Airway Planned: Natural Airway Monitors Used: Standard Monitors
[2024-08-16] MEDS: Lactated Ringers 1,000 ML 30 ML IV (13:15)
[2024-08-16] MEDS: ceFAZolin 2 GM/50 ML BAG IVPB (13:22)
[2024-08-16] MEDS: TRANEXAMIC ACID/SOD. CHL. 1,000 MG/100 ML BAG 600 MG IVPB (13:38)
[2024-08-16] MEDS: Bupivacaine 0.25% Pres-Free W/EPI 30 ML VIAL (14:01)
[2024-08-16] MEDS: ACETAMINOPHEN 1,000 MG/100 ML BAG 400 MG IVPB (16:35)
--- NOTE | 2024-08-16 16:57 | W.ANESPOSTOP ---
Postoperative Evaluation Date, Time and Location Date Performed: 08/16/24 Time Performed: 16:57 Patient Location: Day Surgery Unit Vital Signs Most Recent Imported Vital Signs: Most Recent Vital Signs Temp Pulse Resp BP Pulse Ox 36.6 C 55 L 12 105/64 97 08/16/24 16:40 08/16/24 16:41 08/16/24 16:41 08/16/24 16:40 08/16/24 16:41 Pain Score Most Recent Pain Score: Most Recent Pain Score Pain Level 4 08/16/24 16:43 Assessment Mental Status: Awake (Alert & Oriented to Patient Baseline) Airway and Respiratory Function: Patent airway with normal (patient baseline) respiratory exam Cardiovascular Function: Hemodynamically Stable Hydration Status: Adequately Hydrated Nausea & Vomiting: No Nausea or Vomiting Pain: Pain is tolerable per patient Peripheral Nerve Block: Patient did not receive a nerve block
[2024-08-16] MEDS: Ketorolac 15 MG/ML VIAL IVP (17:05)
== END 2024-08-16 17:54 | disposition home or self-care (01) ==
LOC: SUR 11:55
PROVIDERS: PCP Family Medicine; Visit Provider Student in an Organized Health Care Education/Training Program
PROC: (CPT 27385; principal; 2024-08-16 13:00)
DX: S76.312A Strain of muscle, fascia and tendon of the posterior muscle group at thigh level, left thigh, initial encounter (principal); W01.0XXA Fall on same level from slipping, tripping and stumbling without subsequent striking against object, initial encounter
CPT/HCPCS: 27385; 81025; J0131; J0665; J0666; J0690; J1100; J1171; J1885; J2250; J2401; J2405; J2704

== ENCOUNTER 2024-11-15 01:17 | Outpatient (CLI) | payer BC, SELFPAY ==
--- NOTE | 2024-11-15 08:00 | DI.MAMMO_ITS ---
Exam(s) MAMMO SCREENING EXAM: MAMMO SCREENING CLINICAL HISTORY: screening,Z12.39. TECHNIQUE: Bilateral full field digital CC and MLO mammographic images were obtained with 3D tomosynthesis and utilizing computer aided detection (CAD). COMPARISON: Prior mammograms were reviewed. FINDINGS: There has been no significant change in the appearance and distribution of the fibroglandular tissue. There are no CAD designations. Asymmetric density in left breast is unchanged prior mammograms. No new left breast findings. In the right breast on the MLO view there is a laterally located 5 millimeter nodule located 3 cm in from the nipple on the MLO view, more evident than on prior mammograms. Further imaging recommended. There are no malignant-appearing microcalcification groups is region or elsewhere in either breast There is no significant architectural distortion nor skin thickening-retraction. IMPRESSION: 1. No radiographic evidence of malignancy in the left breast. 2. Asymmetric density-possible nodule in the right breast. Spot compression MLO view breast ultrasound recommended. BI-RADS Category 0 - Incomplete: Need additional imaging evaluation Breast Density - Category B - There are scattered areas of fibroglandular density. Breast density Category C or D implies that the patient has dense breast tissue. Dense breast tissue can make it harder to find cancer on a mammogram. Dense breast tissue is also associated with an increased risk of breast cancer. This information about the result of the mammogram report was provided to the patient to raise their awareness. Use this report when you speak with the patient about their risks for breast cancer, which includes their family history. At that time, you may recommend additional screening tests (Ultrasound or MRI) as these tests may add significant information. A negative radiographic report should not delay biopsy if a dominant or clinically suspicious mass is present. Up to ten percent of cancers are not identified on mammography. A negative report may reinforce clinical impression. Adenosis and dense breasts may obscure an underlying neoplasm. False positive reports average 6 to 10%. Patient will receive a letter notifying them of these results.
== END 2024-11-15 01:37 ==
LOC: DI 01:17
PROVIDERS: PCP Family Medicine; Visit Provider Nurse Practitioner Women's Health
DX: Z12.31 Encounter for screening mammogram for malignant neoplasm of breast (principal); R92.323 Mammographic fibroglandular density, bilateral breasts
CPT/HCPCS: 77063; 77067